=== PATIENT | female | born 1950 | race Caucasian/White ===

== ENCOUNTER 2025-01-09 08:25 | Inpatient (IN) | payer MEDICARE, OTHER ==
[~2025-01-09] VITALS: Ht 157.5 cm; Wt 99.0 kg
[2025-01-09] MEDS ORDERED: Albuterol 2.5 MG/3 ML VIAL INH SCH (08:50)
[2025-01-09 09:18] LABS: Base Excess Venous 9.7 mmol/L; Bicarbonate Venous 31.6 mmol/L (24.0-30.0); PCO2 Venous 55.2 mmHg (38-42)
[2025-01-09] MEDS ORDERED: CefTRIAXone Sodium 1,000 MG in NS 100 ML IV ONE (09:20)
[2025-01-09] MEDS ORDERED: Azithromycin 500 MG in NS 250 ML IV ONE (09:20)
[2025-01-09] MEDS ORDERED: ATOR80 PO (09:37)
[2025-01-09 09:38] LABS: Influenza A, PCR NEGATIVE (NEGATIVE); Influenza B, PCR NEGATIVE (NEGATIVE); SARS-Cov-2 (COVID-19) PCR, MMC NEGATIVE (NEGATIVE)
[2025-01-09] MEDS ORDERED: EZET10 PO (09:38)
[2025-01-09] MEDS ORDERED: FURO20 PO (09:39)
[2025-01-09] MEDS ORDERED: FLUT1DIS8 INH (09:39)
[2025-01-09] MEDS ORDERED: FLUO10 PO (09:39)
[2025-01-09] MEDS ORDERED: HYDHCL25 PO (09:40)
[2025-01-09] MEDS ORDERED: EUTHYROX125 MCG PO (09:40)
[2025-01-09] MEDS ORDERED: MELO7.5 PO (09:40)
[2025-01-09] MEDS ORDERED: ANORO ELLIPTA1 EACH INH (09:40)
[2025-01-09] MEDS ORDERED: OMEP20ER PO (09:41)
[2025-01-09] MEDS ORDERED: OLAN5 PO (09:41)
[2025-01-09] MEDS ORDERED: TRAZ100 PO (09:42)
[2025-01-09] MEDS ORDERED: ALBU90OI INH (09:42)
[2025-01-09] MEDS ORDERED: POTA10T PO (09:42)
[2025-01-09] MEDS ORDERED: ONDA4ODT MM (09:43)
[2025-01-09] MEDS ORDERED: FAMO20 PO (09:43)
[2025-01-09 09:45] LABS: BASOPHILS ABSOLUTE AUTO 0.04 K/mm3 (0.00-0.23); BASOPHILS PERCENT AUTO 1 % (0-2); EOSINOPHILS ABSOLUTE AUTO 0.06 K/mm3 (0.00-0.68); EOSINOPHILS PERCENT AUTO 1 % (0-6); Hematocrit 41.4 % (33.0-51.0); Hemoglobin 13.8 g/dL (11.5-16.0); IMMATURE GRAN ABSOLUTE AUTO 0.06 K/mm3 (0.00-0.10); IMMATURE GRAN PERCENT AUTO 1 % (0-1); LYMPHOCYTES ABSOLUTE AUTO 0.89 K/mm3 (0.84-5.20); LYMPHOCYTES PERCENT AUTO 10 % (21-46); MONOCYTES ABSOLUTE AUTO 0.68 K/mm3 (0.16-1.47); MONOCYTES PERCENT AUTO 8 % (4-13); Mean Corpuscular HGB 30.3 pg (26.0-34.0); Mean Corpuscular HGB Conc 33.3 g/dL (31.5-36.5); Mean Corpuscular Volume 91 fL (80-100); NEUTROPHILS PERCENT AUTO 80 % (41-73); RDW Coefficient Variation 13.6 % (11.7-14.2); RDW Standard Deviation 46.1 fL (35.1-46.3); Red Blood Cell Count 4.55 M/mm3 (3.80-5.20); White Blood Cell Count 8.73 K/mm3 (4.00-11.30)
[2025-01-09 10:05] LABS: Resp Syncytial Virus, PCR POSITIVE (NEGATIVE)
[2025-01-09 10:15] LABS: Platelet Count 173 K/mm3 (150-400)
[2025-01-09 10:16] LABS: Mean Platelet Volume 9.2 fL (9.1-12.4)
[2025-01-09 10:24] LABS: Albumin, Blood 3.5 g/dL (3.4-5.0); Albumin/Globulin Ratio 0.9 (0.8-1.8); Bilirubin, Total 0.9 mg/dL (0.1-1.0); Calcium, Blood 8.9 mg/dL (8.5-10.1); Creatinine, Blood 0.84 mg/dL (0.40-1.00); Globulin, Blood 3.9 g/dL (2.2-4.0); Potassium, Blood 3.7 mmol/L (3.5-5.5); Total Protein, Blood 7.4 g/dL (6.4-8.2)
[2025-01-09 10:48] LABS: Free Thyroxine 0.88 ng/dL (0.70-1.60); Thyroid Stimulating Hormone 18.3 uIU/mL (0.360-4.800)
[2025-01-09] MEDS ORDERED: Famotidine 20 MG Tab PO PRN (13:05)
[2025-01-09] MEDS ORDERED: FLU VACC TS2024-25(6MOS UP)/PF 45 MCG/0.5 ML SYRINGE IM SCH (13:10)
[2025-01-09] MEDS ORDERED: Ondansetron 4 MG SoluTab MM PRN (16:00)
[2025-01-09 16:27] LABS: Source, Urine Foley catheter
[2025-01-09 16:45] LABS: Appearance, Urine Clear (Clear); Bilirubin, Urine Neg (Neg); Blood, Urine 1+ (Neg); Color, Urine Yellow (P-Yellow); Glucose Qualitative, Urine Neg (Neg); Ketones, Urine Neg (Neg); Leukocyte Esterase, Urine Neg (Neg); Nitrite, Urine Neg (Neg); Protein, Urine 3+ (Neg); Specific Gravity, Urine 1.015 (1.003-1.022); Urobilinogen, Urine NORM (Normal)
[2025-01-09 17:26] LABS: Bacteria Few /hpf; Squamous Epithelial Cells Rare /hpf (Few); White Blood Cells, Urine 0-2 /hpf (0-5)
[2025-01-09] MEDS ORDERED: Lactated Ringer's 1,000 ML IV SCH ×2 (19:00→21:10)
[2025-01-09 19:49] LABS: Bun/Creatinine Ratio 11.6 (12.0-20.0); Calcium, Blood 8.8 mg/dL (8.5-10.1); Creatinine, Blood 0.77 mg/dL (0.40-1.00); Magnesium, Blood 2.3 mg/dL (1.6-2.4); Phosphorus, Blood 4.1 mg/dL (2.5-4.9); Potassium, Blood 4.3 mmol/L (3.5-5.5)
[2025-01-09] MEDS ORDERED: HyDROXyzine HCl 25 MG Tab PO SCH (21:00)
[2025-01-09] MEDS ORDERED: OLANZapine 5 MG Tab PO SCH (21:00)
[2025-01-09] MEDS ORDERED: TraZODone HCl 100 MG Tab PO SCH (21:00)
[2025-01-10] VITALS (28 sets, daily range): BP systolic 114–185; BP diastolic 68–141
[2025-01-10] MEDS ORDERED: MethylPREDNISolone Sod Succ 40 MG VIAL IV SCH
[2025-01-10 00:24] LABS: Bun/Creatinine Ratio 13.3 (12.0-20.0); Calcium, Blood 8.3 mg/dL (8.5-10.1); Creatinine, Blood 0.91 mg/dL (0.40-1.00); Potassium, Blood 4.4 mmol/L (3.5-5.5)
[2025-01-10] MEDS ORDERED: Ipratropium/Albuterol SulF 2.5-0.5MG/3 ML Amp INH PRN (01:45)
[2025-01-10] MEDS ORDERED: Omeprazole 20 MG CapCR PO SCH (06:00)
[2025-01-10] MEDS ORDERED: Levothyroxine Sodium 0.15 MG Tab PO SCH (06:00)
[2025-01-10] MEDS ORDERED: Levothyroxine Sodium 0.125 MG Tab PO SCH (06:00)
[2025-01-10 06:46] LABS: BASOPHILS ABSOLUTE AUTO 0.01 K/mm3 (0.00-0.23); BASOPHILS PERCENT AUTO 0 % (0-2); EOSINOPHILS PERCENT AUTO 0 % (0-6); Hematocrit 42.9 % (33.0-51.0); Hemoglobin 13.3 g/dL (11.5-16.0); IMMATURE GRAN ABSOLUTE AUTO 0.07 K/mm3 (0.00-0.10); IMMATURE GRAN PERCENT AUTO 1 % (0-1); LYMPHOCYTES ABSOLUTE AUTO 0.38 K/mm3 (0.84-5.20); LYMPHOCYTES PERCENT AUTO 4 % (21-46); MONOCYTES ABSOLUTE AUTO 0.39 K/mm3 (0.16-1.47); MONOCYTES PERCENT AUTO 4 % (4-13); Mean Corpuscular HGB 29.9 pg (26.0-34.0); Mean Platelet Volume 8.9 fL (9.1-12.4); NEUTROPHILS ABSOLUTE AUTO 8.35 K/mm3 (1.96-9.15); NEUTROPHILS PERCENT AUTO 91 % (41-73); Platelet Count 183 K/mm3 (150-400); RDW Coefficient Variation 13.5 % (11.7-14.2); RDW Standard Deviation 48.4 fL (35.1-46.3); Red Blood Cell Count 4.45 M/mm3 (3.80-5.20)
[2025-01-10 07:13] LABS: Albumin, Blood 3.1 g/dL (3.4-5.0); Albumin/Globulin Ratio 0.7 (0.8-1.8); Bilirubin, Total 0.3 mg/dL (0.1-1.0); Bun/Creatinine Ratio 15.4 (12.0-20.0); Calcium, Blood 8.5 mg/dL (8.5-10.1); Creatinine, Blood 0.91 mg/dL (0.40-1.00); Globulin, Blood 4.3 g/dL (2.2-4.0); Potassium, Blood 4.7 mmol/L (3.5-5.5); Total Protein, Blood 7.4 g/dL (6.4-8.2)
[2025-01-10 08:11] LABS: Mean Corpuscular Volume 96 fL (80-100)
[2025-01-10] MEDS ORDERED: Ezetimibe 10 MG Tab PO SCH (09:00)
[2025-01-10] MEDS ORDERED: Atorvastatin 40 MG Tab PO SCH (09:00)
[2025-01-10] MEDS ORDERED: FLUoxetine HCL 20 MG CAP PO SCH (09:00)
[2025-01-10] MEDS ORDERED: Potassium Chloride 10 Meq Tablet SA PO SCH (09:00)
[2025-01-10] MEDS ORDERED: Enoxaparin 40 MG/0.4 ML SYR SC SCH (09:00)
[2025-01-10] MEDS ORDERED: Lactobacil 2-S.Thermo-Bifido 1 1 Cap PO SCH (09:00)
[2025-01-10] MEDS ORDERED: CefTRIAXone Sodium 1,000 MG in NS 100 ML IV SCH (09:00)
[2025-01-10] MEDS ORDERED: Furosemide 20 MG Tab PO SCH (09:00)
[2025-01-10 10:05] LABS: PO2 Arterial 204 mmHg (80-100)
[2025-01-10 10:06] LABS: PCO2 Arterial > 105 mmHg (35-45); pH Blood Arterial 7.15 (7.35-7.45)
[2025-01-10 11:41] LABS: Base Excess Venous 13.9 mmol/L; Bicarbonate Venous 33.3 mmol/L (24.0-30.0); PCO2 Venous 96.7 mmHg (38-42)
[2025-01-10 11:42] LABS: pH Blood Venous 7.24 (7.34-7.37)
[2025-01-10] MEDS ORDERED: Azithromycin 500 MG in NS 250 ML IV SCH (12:00)
[2025-01-10 15:31] LABS: Base Excess Venous 13.8 mmol/L; Bicarbonate Venous 34.1 mmol/L (24.0-30.0); PCO2 Venous 76.3 mmHg (38-42); pH Blood Venous 7.33 (7.34-7.37)
--- NOTE | 2025-01-10 15:51 | NUR ---
PATIENT BELONGINGS 1 ROBE 1 SHIRT 1 PAIR OF SHOES 1 EYE GLASSES 1 CELL PHONE 1 [place] BAND WRAPPER 1 UPPER DENTURES - IN DENTURE CUP WITH UPHOLSTERER APPRENTICE SOLUTION 2 LOWER DENTURE BRIDGES - IN DENTURE CUP WITH UPHOLSTERER APPRENTICE SOLUTION JEWELRY 1 GOLD NECKLACE WITH PENDANT 1 STRING NECKLACE WITH BRETT PENDANT 1 STRING NECKLACE WITH 2 KEYS 1 SILVER NECKLACE WITH CROSS PENDANT 1 MULTI-COLORED BEADED NECKLACE 1 MULTI-COLORED BEADED BRACELET 6 RINGS TOTAL - 1 RING ABLE TO BE REMOVED ALL NECKLACES, BRACELET, AND 1 RING IN BAG WITH PATIENT LABEL AND PLACED IN PATIENT GARMENT BAG WITH REMAINDER OF BELONGINGS. ITEMS STORED AT BEDSIDE IN ROOM.
--- NOTE | 2025-01-10 18:13 | NUR ---
SHIFT SUMMARY PT ADMITTED TO ICU 01 FROM ED FOR HYPOXIC RESPIRATORY FAILURE REQUIRING BIPAP AND AMS, CO2 >105. REPEAT VBGS SHOW CO2 TRENDING DOWN WITH MOST RECENT AT 1530 RESULTING 76.3. PT ORIGINALLY ONLY ABLE TO OPEN EYES. PT IS NOW ABLE TO MOVE ALL EXTREMITIES, FOLLOW COMMANDS WITH SEVERE WEAKNESS, ORIENTED TO SELF AND COMING TO THE ER BUT REQUIRES REORIENTATION TO SITUATION/DATE/TIME. AFEBRILE. NSR 60S-70S, BPS WITHIN PARAMETERS WITH MILD HYPERTENSION. BIPAP SETTINGS CHARTED, FIO2 35%. PER DR. GILLETTE'S ORDER, IF PH IS >7.3, PT MAY TAKE BREAKS FROM BIPAP. HOWEVER, OXYGEN SATURATION DROPS TO 85% AND PT WILL NOT KEEP SIMPLE MASK ON. PT WAS ABLE TO TOLERATE NASAL CANNULA FOR A SHORT TIME TO EAT PART OF HER DINNER MEAL AND DRINK SOME WATER. LUNGS ARE TIGHT WITH WHEEZING BILATERALLY. UNPRODUCTIVE, CONGESTED COUGH. MARIANO PLACED IN ED FOR RETENTION. SOME REDNESS TO GLUTEAL CLEFT. PIV TO LAC, MIDLINE TO ALEX. CHG BATH PERFORMED ON ARRIVAL TO UNIT.
--- NOTE | 2025-01-10 21:24 | NUR ---
ASSUMPTION OF CARE ASSUMED CARE OF PATIENT AT 1900, BEDSIDE SHIFT REPORT RECEIVED FROM ARON RN. PT RESTING IN BED, ORIENTED TO SELF. PT ABLE TO STATE NAME AND . PT FOLLOWS SOME DIRECTION WHEN PROMPTED SUCH SQUEEZING HANDS AND WIGGLING TOES. PT QUICKLY FALLS ASLEEP MID CONVERSATION. PT LETHARGIC. HR 60-70'S SINUS, MAP >65. PT ON BIPAP 18/7 35%, OXYGEN SATURATION >90%. PT SWITCHED TO 6L NC FOR ORAL CARE AND ATTEMPT TO GIVE MEDICATIONS, OXYGEN SATURATION HIGH 80'S. PT UNABLE TO DRINK WATER WHEN ASKED, NIGHT TIME MEDICATIONS HELD. ABDOMEN SOFT AND ROUND, BOWEL TONES ACTIVE THROUGHOUT. MARIANO IN PLACE PATENT DRAINING DARK YELLOW URINE TO GRAVITY. PIV IN PLACE TO LAC SL. POWERGLIDE IN PLACE TO ALEX SL. BED IN LOWEST POSITON, CALL LIGHT WITHIN REACH, CARE CONNTINUES.
[2025-01-11] VITALS (36 sets, daily range): BP systolic 86–203; BP diastolic 56–107
[2025-01-11 02:09] LABS: Base Excess Venous 14.8 mmol/L; Bicarbonate Venous 34.9 mmol/L (24.0-30.0); PCO2 Venous 79.9 mmHg (38-42); pH Blood Venous 7.32 (7.34-7.37)
[2025-01-11 02:17] LABS: BASOPHILS ABSOLUTE AUTO 0.01 K/mm3 (0.00-0.23); BASOPHILS PERCENT AUTO 0 % (0-2); EOSINOPHILS PERCENT AUTO 0 % (0-6); Hematocrit 40.9 % (33.0-51.0); Hemoglobin 12.8 g/dL (11.5-16.0); IMMATURE GRAN ABSOLUTE AUTO 0.04 K/mm3 (0.00-0.10); IMMATURE GRAN PERCENT AUTO 1 % (0-1); LYMPHOCYTES ABSOLUTE AUTO 0.34 K/mm3 (0.84-5.20); LYMPHOCYTES PERCENT AUTO 4 % (21-46); MONOCYTES ABSOLUTE AUTO 0.42 K/mm3 (0.16-1.47); MONOCYTES PERCENT AUTO 5 % (4-13); Mean Corpuscular HGB 30.5 pg (26.0-34.0); Mean Corpuscular HGB Conc 31.3 g/dL (31.5-36.5); Mean Corpuscular Volume 98 fL (80-100); Mean Platelet Volume 8.9 fL (9.1-12.4); NEUTROPHILS ABSOLUTE AUTO 7.37 K/mm3 (1.96-9.15); NEUTROPHILS PERCENT AUTO 90 % (41-73); Platelet Count 196 K/mm3 (150-400); RDW Coefficient Variation 13.3 % (11.7-14.2); RDW Standard Deviation 47.4 fL (35.1-46.3); Red Blood Cell Count 4.19 M/mm3 (3.80-5.20); White Blood Cell Count 8.18 K/mm3 (4.00-11.30)
[2025-01-11 02:33] LABS: Albumin, Blood 3.1 g/dL (3.4-5.0); Albumin/Globulin Ratio 0.8 (0.8-1.8); Bilirubin, Total 0.4 mg/dL (0.1-1.0); Bun/Creatinine Ratio 20.9 (12.0-20.0); Calcium, Blood 9.1 mg/dL (8.5-10.1); Creatinine, Blood 0.91 mg/dL (0.40-1.00); Globulin, Blood 3.7 g/dL (2.2-4.0); Total Protein, Blood 6.8 g/dL (6.4-8.2)
--- NOTE | 2025-01-11 05:43 | NUR ---
SHIFT SUMMARY NO ACUTE CHANGES THIS SHIFT. PT CONTINUES TO REST IN BED, SLEEPING BUT AROUSABLE. PT MORE AWAKE THIS AM, ORIENTED TO SELF, FOLLOWING SOME COMMANDS SUCH WIGGLING TOES AND SQUEEZING HANDS. PT MOVES EXTREMITIES EQUALLY BILATERALLY. HR 50-70'S SINUS, PT HYPERTENSIVE THIS SHIFT. SBP 140-190'S. PT ON BIPAP FOR THE MAJORITY OF THE SHIFT, 18/7 35%, PT TOLERATED BREAK THIS AM, PLACED ON 6L NC, OXYGEN SATURATION >90%. ABDOMEN SOFT, BOWEL TONES ACTIVE THROUGHOUT. MARIANO IN PLACE PATENT DRAINING YELLOW URINE TO GRAVITY. PIV IN PLACE TO LAC SL. POWERGLIDE IN PLACE TO ALEX INFUSING LR @ 50MLS/HR. BED IN LOWEST POSITION, CALL LIGHT WITHIN REACH, CARE CONTINUES.
[2025-01-11] MEDS ORDERED: HydrALAZINE HCl 20 MG / ML 1ML Vial IV PRN (06:25)
--- NOTE | 2025-01-11 08:57 | NUR ---
Wilkinson of care: Weaned from BiPAP for a short break. She is drowsy & disoriented to everything but self. Placed on 3L. Wheezes throughout. In NSR in 70s but hypertensive - discussed with MD. See emar. Fitch cath in place along with PIV & powerglide. Encouraged to eat breakfast while BiPAP is off. LR infusing at 50 cc/hr. Will continue to monitor.
[2025-01-11] MEDS ORDERED: Lisinopril 20 MG Tab PO SCH (09:00)
[2025-01-11 15:21] LABS: Base Excess Venous 17.9 mmol/L; Bicarbonate Venous 37.5 mmol/L (24.0-30.0); PCO2 Venous 85.9 mmHg (38-42); pH Blood Venous 7.32 (7.34-7.37)
--- NOTE | 2025-01-11 15:54 | NUR ---
Notified Dr. Rasmussen of VBG results. She would like to obtain another at midnight & keep her ICU status until we know which way the VBGs are trending.
--- NOTE | 2025-01-11 17:05 | NUR ---
Shift summary: Spoke with her caseworker protective services, Lori. It sounds like she is at her baseline neurologically. She is oriented to person only. She is intermittently anxious. She does follow commands. She has expressive aphasia. She has been either NSR or sinus arrhythmia today in the 60s for the most part. Blood pressures somewhat labile. See emar for meds administered today. Has remained on BiPAP 18/7, 35% for almost the entire shift, except for 2 short breaks on 3L NC. She has audible wheezes when off the mask. Repeat VBG with CO2 of 85.5, pH 7.3 - will repeat at midnight. She has a congested, moist, unproductive cough. She did not eat any of her meals today due to being quite drowsy & somnolent, though she was alert at my 1600 assessment. She has a wilson cath that is patent & secure draining clear yellow urine. Powerglide & PIV in place. Discussed with MD & updated the patient & her transplant case manager on plan of care.
[2025-01-11] MEDS ORDERED: Insulin Human Lispro 100 Units/ML 3ML Syringe SC PRN (18:00)
--- NOTE | 2025-01-11 22:00 | NUR ---
ASSUME CARE: BEDSIDE REPORT RECIEVED FROM ARON RN. PT A/O TO SELF ONLY. PT FROM [facility], REPORT RECIEVED THAT PT IS ONLY A/O TO SELF AND CONFUSED AT BASELINE. PT ON VENTI MASK AT 5L SPO2>95%. BIPAP PLACED AT 2000 SETTINGS 18/7 AT 35%. PT ABLE TO TOLERATE FOR 1 HR AND PULLED IT OFF, VENTI MASK PLACED FOR BREAK. WILL ATTEMPT TO PUT PT BACK ON BIPAP. VSS. CALL LIGHT IN REACH AND BED IN LOWEST POSITION. WILL REPORT NEEDED.
[2025-01-12] VITALS (17 sets, daily range): BP systolic 135–179; BP diastolic 58–136
[2025-01-12 00:47] LABS: Base Excess Venous 16.7 mmol/L; Bicarbonate Venous 37.3 mmol/L (24.0-30.0); PCO2 Venous 76.8 mmHg (38-42); pH Blood Venous 7.35 (7.34-7.37)
[2025-01-12 03:57] LABS: BASOPHILS PERCENT AUTO 0 % (0-2); EOSINOPHILS PERCENT AUTO 0 % (0-6); Hematocrit 38.9 % (33.0-51.0); Hemoglobin 12.2 g/dL (11.5-16.0); IMMATURE GRAN ABSOLUTE AUTO 0.04 K/mm3 (0.00-0.10); IMMATURE GRAN PERCENT AUTO 1 % (0-1); LYMPHOCYTES ABSOLUTE AUTO 0.55 K/mm3 (0.84-5.20); LYMPHOCYTES PERCENT AUTO 8 % (21-46); MONOCYTES ABSOLUTE AUTO 0.35 K/mm3 (0.16-1.47); MONOCYTES PERCENT AUTO 5 % (4-13); Mean Corpuscular HGB 30.3 pg (26.0-34.0); Mean Corpuscular HGB Conc 31.4 g/dL (31.5-36.5); Mean Corpuscular Volume 97 fL (80-100); Mean Platelet Volume 9.2 fL (9.1-12.4); NEUTROPHILS ABSOLUTE AUTO 5.91 K/mm3 (1.96-9.15); NEUTROPHILS PERCENT AUTO 86 % (41-73); Platelet Count 191 K/mm3 (150-400); RDW Coefficient Variation 13.4 % (11.7-14.2); RDW Standard Deviation 47.9 fL (35.1-46.3); Red Blood Cell Count 4.03 M/mm3 (3.80-5.20); White Blood Cell Count 6.85 K/mm3 (4.00-11.30)
[2025-01-12 04:45] LABS: Albumin, Blood 2.8 g/dL (3.4-5.0); Albumin/Globulin Ratio 0.8 (0.8-1.8); Bilirubin, Total 0.4 mg/dL (0.1-1.0); Bun/Creatinine Ratio 27.2 (12.0-20.0); Calcium, Blood 8.6 mg/dL (8.5-10.1); Creatinine, Blood 1.03 mg/dL (0.40-1.00); Globulin, Blood 3.5 g/dL (2.2-4.0); Potassium, Blood 4.5 mmol/L (3.5-5.5); Total Protein, Blood 6.3 g/dL (6.4-8.2)
--- NOTE | 2025-01-12 06:18 | NUR ---
SHIFT SUMMARY: PT A/O TO SELF ONLY AND ANXIOUS AT TIMES. PT ABLE TO TOLERATE BIPAP FOR MOST OF THE NIGHT AND SLEPT WELL. BIPAP SETTINGS 18/7 AT 35%, SPO2>90%. VSS. NO OTHER ACUTE CHANGES. MARIANO PATENT DRAINING TO GRAVITY. CALL LIGHT IN REACH. WILL REPORT TO ONCOMING RN.
[2025-01-12] MEDS ORDERED: Azithromycin 250 MG Tab PO SCH (12:00)
--- NOTE | 2025-01-12 14:16 | NUR ---
ATTEMPTED TO CONTACT [facility] DONNY RM. LEFT A DETAILED MESSAGE ON SECURE LINE AND REQUESTED CALL BACK TO DISCUSS GOALS OF CARE AND POLST.
--- NOTE | 2025-01-12 14:28 | NUR ---
SPOKE TO GRICELDA MEDEL AT [facility], PATIENT RESIDENCE. GRICELDA STATED PT HAS A POLST ON FILE WHICH STATES PT IS A DNR. REQUESTED COPY OF [employer] DOCUMENTS FOR OUR FILES. GRICELDA STATED SHE WOULD FAX POLST FORM AND [employer] PAPERWORK TO FAX #[phone]. UPDATED DOMINIC MEDEL.
--- NOTE | 2025-01-12 17:56 | NUR ---
SHIFT SUMMARY PT CHANGED TO PCU STATUS. PT UNABLE TO TOLERATE PROLONGED PERIODS ON NC D/T BREATHING THROUGH HER MOUTH. PT PLACED ON BIPAP SEVERAL TIMES THROUGHOUT THE DAY D/T DROWSINESS. NO OTHER ACUTE CHANGES OR EVENTS TODAY. WILL CONTINUE WITH THE PLAN OF CARE.
--- NOTE | 2025-01-12 18:47 | NUR ---
DENTURES NURSE AID NOTICED PT LOWER DENTURES WERE BROKEN INTO TWO PIECES. THIS NURSE CALLED [facility] AND THEY CONFIRMED FAR THEIR KNOWLEDE IT WAS WHOLE IN ONE PIECE WHILE SHE WAS THERE.
--- NOTE | 2025-01-12 20:58 | NUR ---
ASSUME CARE: REPORT RECIEVED FROM DAYSHIFT RN. PT A/O TO SELF ONLY WITH CONFUSION. PT APPEARS TO BE IN A BETTER MOOD TODAY, MORE AGREEABLE TO PUT BIPAP MASK ON FOR SLEEP. BIPAP SETTINGS. 18/ AT 35%, SPO2>95%. VSS. MARIANO PATENT DRAINING TO GRAVITY. WILL UPDATE NEEDED.
[2025-01-12] MEDS ORDERED: Enoxaparin 40 MG/0.4 ML SYR SC SCH (21:00)
[2025-01-13] VITALS (7 sets, daily range): BP systolic 145–168; BP diastolic 83–110
[2025-01-13 03:31] LABS: BASOPHILS PERCENT AUTO 0 % (0-2); EOSINOPHILS PERCENT AUTO 0 % (0-6); Hematocrit 40.4 % (33.0-51.0); Hemoglobin 12.7 g/dL (11.5-16.0); IMMATURE GRAN ABSOLUTE AUTO 0.02 K/mm3 (0.00-0.10); IMMATURE GRAN PERCENT AUTO 0 % (0-1); LYMPHOCYTES ABSOLUTE AUTO 0.61 K/mm3 (0.84-5.20); LYMPHOCYTES PERCENT AUTO 9 % (21-46); MONOCYTES ABSOLUTE AUTO 0.46 K/mm3 (0.16-1.47); MONOCYTES PERCENT AUTO 6 % (4-13); Mean Corpuscular HGB 30.2 pg (26.0-34.0); Mean Corpuscular HGB Conc 31.4 g/dL (31.5-36.5); Mean Corpuscular Volume 96 fL (80-100); NEUTROPHILS ABSOLUTE AUTO 6.09 K/mm3 (1.96-9.15); NEUTROPHILS PERCENT AUTO 85 % (41-73); Platelet Count 205 K/mm3 (150-400); RDW Coefficient Variation 13.2 % (11.7-14.2); RDW Standard Deviation 47.4 fL (35.1-46.3); White Blood Cell Count 7.18 K/mm3 (4.00-11.30)
[2025-01-13 03:35] LABS: Base Excess Venous 19.3 mmol/L; Bicarbonate Venous 39.7 mmol/L (24.0-30.0)
[2025-01-13 05:09] LABS: Albumin, Blood 2.9 g/dL (3.4-5.0); Albumin/Globulin Ratio 0.8 (0.8-1.8); Bilirubin, Total 0.4 mg/dL (0.1-1.0); Bun/Creatinine Ratio 29.9 (12.0-20.0); Calcium, Blood 8.6 mg/dL (8.5-10.1); Creatinine, Blood 0.87 mg/dL (0.40-1.00); Globulin, Blood 3.5 g/dL (2.2-4.0); Potassium, Blood 4.4 mmol/L (3.5-5.5); Total Protein, Blood 6.4 g/dL (6.4-8.2)
--- NOTE | 2025-01-13 06:08 | NUR ---
SHIFT SUMMARY: PT A/O TO SELF, AND CONFUSED AT TIMES. PT ABLE TO TOLERATE BIPAP FOR MOST OF THE NIGHT, SPO2>95% ON BIPAP, VENT SETTINGS 18/7 AT 35%. VSS. PT ABLE TO TAKE SMALL BREAKS FROM THE BIPAP FOR DRINKS OF WATER AND MEDICATED ADMINISTRATION. MONTSERRAT REMOVED THIS AM. CALL LIGHT IN REACH AND BED IN LOWEST POSITION. WILL REPORT TO ONCOMING RN.
--- NOTE | 2025-01-13 12:41 | NUR ---
DENTURES THIS RN SPOKE WITH TRACEY Rosales RN THAT ADMITTED PT TO ICU. TRACEY CONFIRMED THE LOWER DENTURES ARRIVED TO ICU IN CUP IN 2 PIECES FROM THE ER SHE CHARTED IN HER NOTE ON 01/10/25 @ 4999 TITLED PATIENT BELONGINGS. DENISA (DENTAL HYGENTIST) IS TAKING THE DENTURES TO ADVANTAGE DENTAL TO BE REPAIRED.
--- NOTE | 2025-01-13 14:38 | NUR ---
PHONE CALL FROM PATIENTS GUARDIAN. SHE EXPRESSED CONCERNS FOR BROKEN DENTURES. AND INQUIRED IF WE HAD RECIEVED PAPERWORK REQUESTED. WE RECIEVED POLST AND [employer] PAPERWORK FROM [place] THIS SHIFT. GUARDIAN WAS UNAWARE THAT THIS PATIENT HAD A POLST, FAXED COPY TO GUARDIAN. SHE REVIEWED AND EXPRESSED THAT THIS POST DOES NOT APPROPRIATLY REFLECT ELIU' WISHES. VIA PHONE CONVERSATION A NEW POSLT WAS COMPLETED. REVIEWED OPTIONS AND ATTEMPT RESSUCIATION AND FULL TREATMENT WERE SELECTED. PC GIANFRANCO FOSTER WAS PRESENT FOR THIS CONVERSATION. PROVIDER UPDATED VIA PHONE AND ORDERS CHANGED. COPY SENT TO REGISTRY AND SENT TO MEDICAL RECORDS. PC WILL CONTINUE TO PROVIDE SUPPORT.
--- NOTE | 2025-01-13 17:16 | NUR ---
PT MORE AWAKE TODAY. RESPONSIVE AND TALKING TO STAFF THROUGHOUT THE SHIFT. REFUSAL OF CARE AT TIMES. WHEN EATING PLACED ON 5LNC, IN BETWEEN MEALS, PT ON 5L OXYMASK. EATING 100% OF MEALS. VOIDING WITH PUREWICK SYSTEM. NO CONCERNS AT THIS TIME.
[2025-01-14] VITALS (15 sets, daily range): BP systolic 121–202; BP diastolic 58–91
[2025-01-14 03:27] LABS: BASOPHILS ABSOLUTE AUTO 0.01 K/mm3 (0.00-0.23); BASOPHILS PERCENT AUTO 0 % (0-2); EOSINOPHILS PERCENT AUTO 0 % (0-6); Hematocrit 40.8 % (33.0-51.0); IMMATURE GRAN ABSOLUTE AUTO 0.05 K/mm3 (0.00-0.10); IMMATURE GRAN PERCENT AUTO 1 % (0-1); LYMPHOCYTES ABSOLUTE AUTO 0.63 K/mm3 (0.84-5.20); LYMPHOCYTES PERCENT AUTO 9 % (21-46); MONOCYTES ABSOLUTE AUTO 0.39 K/mm3 (0.16-1.47); MONOCYTES PERCENT AUTO 6 % (4-13); Mean Corpuscular HGB Conc 31.9 g/dL (31.5-36.5); Mean Corpuscular Volume 94 fL (80-100); Mean Platelet Volume 8.9 fL (9.1-12.4); NEUTROPHILS ABSOLUTE AUTO 5.98 K/mm3 (1.96-9.15); NEUTROPHILS PERCENT AUTO 85 % (41-73); Platelet Count 204 K/mm3 (150-400); RDW Standard Deviation 44.8 fL (35.1-46.3); Red Blood Cell Count 4.34 M/mm3 (3.80-5.20); White Blood Cell Count 7.06 K/mm3 (4.00-11.30)
[2025-01-14 03:50] LABS: Albumin, Blood 2.9 g/dL (3.4-5.0); Albumin/Globulin Ratio 0.8 (0.8-1.8); Bilirubin, Total 0.4 mg/dL (0.1-1.0); Bun/Creatinine Ratio 43.1 (12.0-20.0); Calcium, Blood 8.8 mg/dL (8.5-10.1); Creatinine, Blood 0.81 mg/dL (0.40-1.00); Globulin, Blood 3.6 g/dL (2.2-4.0); Potassium, Blood 4.3 mmol/L (3.5-5.5); Total Protein, Blood 6.5 g/dL (6.4-8.2)
--- NOTE | 2025-01-14 05:02 | NUR ---
SHIFT SUMMARY: PT A/O TO SELF ONLY, ANXIOUS AND CONFUSED AT TIMES THROUGHOUT THE SHIFT. PT ABLE TO WEAR THE BIPAP FOR MOST OF THE NIGHT AGAIN TONIGHT AND SLEPT WELL. SBP 16Os, MAP>65. HR 50s-60s, BUT DROPS DOWN INTO THE MID 40s AT TIMES. SPO2>95% ON BIPAP, SETTINGS 18/7 AT 35%. PUREWICK IN PLACE. PLAN TO MOVE PT TO U 11. WILL REPORT TO MANUFACTURING ENGINEERING TECHNICIAN.
--- NOTE | 2025-01-14 06:18 | NUR ---
PT ARRIVED FROM ICU AT 0600. PLACED ON TELE, VITALS COMPLETED, PUREWICK REPLACED, SCD'S ON. PT ON BASELINE OXYGEN SETTING OF 3L NC. PT NOW RESTING WITH EVEN CHEST RISE.
[2025-01-14] MEDS ORDERED: NS 250 ML IV PRN (08:35)
[2025-01-14] MEDS ORDERED: Nicotine 7 MG PATCH TOP SCH (09:00)
--- NOTE | 2025-01-14 17:03 | NUR ---
SHIFT NOTE: PT A/OX0 PT KNOWS FIRST NAME AND WHEN LATER PROMPTED COULD GIVE HER LAST NAME. SHE IS UNABLE TO VERBALIZE HER OR ANY OTHER ORIENTATION QUESTIONS. PT BECOMES AGGITATED WHEN UNABLE TO COME UP WITH ANSWERS TO QUESTIONS. SHE IS IN NSR WITH NO ACUTE EVENTS T/O DAY. SHE IS ON 3L OXYMASK DUE TO DESATTING WITH NC. SHE HAS A COUGH AND COARSE LUNG SOUNDS. SHE IS INCONT WITH A PUREWICK SET TO SUCTION. SHE REQUIRES STAFF FOR Q2 REPOSITIONING. BRAND COORDINATOR HAS ASSISTED PT WITH ALL MEALS. DENTURES RETURNED TO PT FROM DENTIST OFFICE. THIS RN UPDATED RN AT [facility] AND GUARDIAN. CARE CONTINUES, CALL LIGHT IN REACH
--- NOTE | 2025-01-14 17:12 | NUR ---
DISCUSSED CASE WITH DR. FONG. PATIENTS GUARDIAN WILL COME IN TOMORROW TO HAVE A CONVERSATION WITH PT PATIENT ABOUT GOALS OF CARE AND REVIEW POLST. PC WILL CONTINUE TO PROVIDE SUPPORT
[2025-01-15 03:35] VITALS: BP 168/78
[2025-01-15 03:56] LABS: BASOPHILS ABSOLUTE AUTO 0.02 K/mm3 (0.00-0.23); BASOPHILS PERCENT AUTO 0 % (0-2); EOSINOPHILS PERCENT AUTO 0 % (0-6); Hematocrit 42.6 % (33.0-51.0); Hemoglobin 13.6 g/dL (11.5-16.0); IMMATURE GRAN ABSOLUTE AUTO 0.13 K/mm3 (0.00-0.10); IMMATURE GRAN PERCENT AUTO 1 % (0-1); LYMPHOCYTES ABSOLUTE AUTO 0.72 K/mm3 (0.84-5.20); LYMPHOCYTES PERCENT AUTO 8 % (21-46); MONOCYTES ABSOLUTE AUTO 0.47 K/mm3 (0.16-1.47); MONOCYTES PERCENT AUTO 5 % (4-13); Mean Corpuscular HGB 30.2 pg (26.0-34.0); Mean Corpuscular HGB Conc 31.9 g/dL (31.5-36.5); Mean Corpuscular Volume 95 fL (80-100); Mean Platelet Volume 9.5 fL (9.1-12.4); NEUTROPHILS ABSOLUTE AUTO 7.82 K/mm3 (1.96-9.15); NEUTROPHILS PERCENT AUTO 85 % (41-73); Platelet Count 214 K/mm3 (150-400); RDW Coefficient Variation 13.2 % (11.7-14.2); RDW Standard Deviation 46.1 fL (35.1-46.3); Red Blood Cell Count 4.51 M/mm3 (3.80-5.20); White Blood Cell Count 9.16 K/mm3 (4.00-11.30)
[2025-01-15 04:13] LABS: Albumin/Globulin Ratio 0.8 (0.8-1.8); Bilirubin, Total 0.4 mg/dL (0.1-1.0); Bun/Creatinine Ratio 46.7 (12.0-20.0); Calcium, Blood 8.8 mg/dL (8.5-10.1); Creatinine, Blood 0.96 mg/dL (0.40-1.00); Globulin, Blood 3.7 g/dL (2.2-4.0); Potassium, Blood 4.2 mmol/L (3.5-5.5); Total Protein, Blood 6.7 g/dL (6.4-8.2)
--- NOTE | 2025-01-15 05:51 | NUR ---
SHIFT SUMMARY PT IS A&O X2, ABLE TO STATE NAME AND , STATES SHE IS [facility] BUT IS UNABLE TO STATE THE YEAR OR TOWN SHE IS IN, OR WHY SHE CAME INTO THE HOSPITAL, ABLE TO MAKE NEEDS KNOWN, OBEYS COMMANDS, BED REST AT THIS TIME, MOVING ALL EXTREMITES WITH PURPOSE/ BLE WEAK, PT CONVERSATION DOES NOT ALWAYS MAKE SENSE. CONTINUOUS SPO2, SPO2 GREATER THAN 90% ON BASELINE 3L O2 VIA OXIMASK, RR ELEVATED INTO THE 20 S, PT HAVING OCCASIONAL COUGH WHEN ASKED TO DEEP BREATH. CONTINUOUS TELE MONITORING, PT SINUS RHYTHM 60-70 S, AT THE START OF SHIFT SBP IN THE 200 S/ GAVE PRN MEDICATIONS PER ORDERS AND BP CAME DOWN TO 140 S, BP STABLE WITH MAP GREATER THAN 65, PT DENIES CHEST P/P T/O THIS SHIFT, PULSES PRESENT T/O. BOWEL TONES PRESENT IN ALL 4Q, PT DENIES PAIN DURING PALPATION. PUREWICK IN PLACE TO LOW CONTINUOUS SUCTION, URINE YELLOW IN COLOR. BED LOWEST POSITION, CALL LIGHT IN REACH, AWAITING TO GIVE REPORT TO ONCOMING RN.
[2025-01-15 08:06] VITALS: BP 150/74
--- NOTE | 2025-01-15 09:30 | NUR ---
ASSUMPTION OF CARE: PATIENT IS ALERT AND ORIENTED X 2 HOWEVER IS USING THE CALL LIGHT APPROPRIATELY, CAN BE AGITATED BUT EASILY TALKED DOWN, HAS HAD A BED BATH, PHYSICAL THERAPY EVAL, 1-2P ASSIST WITH FWW GB, STAND PIVOT TYPES OF TRANSFERS, ONLY MINIMALLY UNSTEADY. PRESSURE REDISTRIBUTION PILLOWS IN PLACE ON THE CHAIR FOR BMAT SCORE AND PROLONGED STAY. PATIENT DENIES CHEST PAIN PRESSURE OR SOB AT REST. WHEN UP TO [facility] SHE VOIDED 1900 OUT OF BLADDER. WITH A MODERATELY SATURATED BRIED AND AM 400 PUREWICK VOID SO FAR TODAY. PATIENT WITH NO KNOWN BOWEL DATE PASSING GAS BOWEL TONES PRESENT, NO BM MEDS AT THIS TIME AWAITING HOSPITALIST ROUNDING. SR AT THIS TIME ONLY USING 3L VIA NC SPO2 >94%. PLAN OF CARE CONTNIUES.
[2025-01-15] MEDS ORDERED: Docusate Sodium/Senna 1 Tab PO SCH (11:20)
[2025-01-15 12:32] VITALS: BP 139/69
--- NOTE | 2025-01-15 15:03 | NUR ---
SPOKE TO GUARDIAN ON THE PHONE. SHE WAS IN EARLIER WITH RN FROM [facility]. THEY DISCUSSED CODE STATUS. AT THIS TIME PATIENT TO REMAIN FULL CODE. UPDATED PROVIDER AND HE WILL SIGN POLST TOMORROW DURING ROUNDS.
--- NOTE | 2025-01-15 18:10 | NUR ---
EOS: PATIENT OVERALL IMPROVED THROUGH THE DAY, STILL BECOMING AGITATED AT TIMES WITH STAFF FOR THIS RN WAS EASILY REDIRECTABLE, HOWEVER, OTHER STAFF SHE WOULD REFUSE CARE. PATIENT HAS BEEN 3-4L MOSTLY 3 IF OXYMASK, 4 WITH NC AND AWAKE. PATIENT DENIES CHEST PAIN PRESSURE OR SOB. SPO2 >90-92% ON ABOVE OXYGENATION. PATIENT TOLERATED EATING MEALS IN CHAIR. AND BLADDER TRAINING (UP TO BSC) PROIVDED WITH REPOSITIONS AND MEALS, WAS UNABLE TO VOID, NO SENSATION TO VOID, AND NEEDED STRAIGHT CATHETERIZATION 600mL OBTAINED. PATIETN EDUCATED ON NEED. PATIENT ALSO EDUCATED ON FURTHER POTENTIAL NEED. PATIENT HAS BEEN REPOSITIONED Q2 OR MORE FREQUENT. PATIENT L AC REMOVED DUE TO LEAKING. PATIENT WITH BOWEL MEDS STARTED. ACTIVE BOWEL TONES THROUGHTOUT AND PASSING GAS. NO FURTHER ACUTE CONCERNS.
[2025-01-15 20:25] VITALS: BP 186/65
[2025-01-15 21:10] VITALS: BP 141/51
[2025-01-15] MEDS ORDERED: BISA10S PR (22:29)
[2025-01-15] MEDS ORDERED: DULCOLAX400 MG/5 M PO (22:38)
[2025-01-15] MEDS ORDERED: Milk Thistle175 M1 PO (22:39)
[2025-01-15] MEDS ORDERED: MIRALAX17 GM PO (22:44)
[2025-01-15] MEDS ORDERED: SENNA LAXATIVE8.6 MG PO (22:46)
[2025-01-15] MEDS ORDERED: VITAMIN D325 MC3 PO (22:48)
[2025-01-15] MEDS ORDERED: CALCIUM 600 MG1 EA18 PO (22:52)
[2025-01-15 23:40] VITALS: BP 101/73
[2025-01-16] VITALS (7 sets, daily range): BP systolic 122–170; BP diastolic 44–93
--- NOTE | 2025-01-16 05:25 | NUR ---
SHIFT SUMMARY PT IS A&O X2, ABLE TO STATE NAME AND , STATES SHE [place] [facility] BUT IS UNABLE TO STATE THE YEAR OR TOWN SHE IS IN, OR WHY SHE CAME INTO THE HOSPITAL, ABLE TO MAKE NEEDS KNOWN, OBEYS COMMANDS, MOVING ALL EXTREMITES WITH PURPOSE/ BLE WEAK, AMBULATED 1P ASSIST WITH FWW, PT DID BECOME AGGITATED A COUPLE TIMES THIS SHIFT WHEN SHE FELT OVERLY HEATED AND WANTED THE BLANKETS OFF. CONTINUOUS SPO2, SPO2 GREATER THAN 90% ON BASELINE 3L O2 VIA OXIMASK, RR ELEVATED INTO THE 20 S, PT HAVING OCCASIONAL COUGH. CONTINUOUS TELE MONITORING, PT SINUS RHYTHM 60-70 S, AT THE START OF SHIFT SBP IN THE 180 S/ GAVE PRN MEDICATIONS PER ORDERS, BP STABLE WITH MAP GREATER THAN 65, MURMUR PRESENT/MD MADE AWARE, PT DENIES CHEST P/P T/O THIS SHIFT, PULSES PRESENT T/O. BOWEL TONES PRESENT IN ALL 4Q. PT VOIDING IND TO BSC, URINE PALE YELLOW. BED LOWEST POSITION, CALL LIGHT IN REACH, AWAITING TO GIVE REPORT TO ONCOMING RN.
--- NOTE | 2025-01-16 16:13 | NUR ---
SHIFT SUMMARY PT UP TO CHAIR AND BATHROOM WITH 1 ASSIST DURING SHIFT. USES OXYMASK AT 1-2L DURING SHIFT. WILL DESAT WITH NASAL CANULA OR WHILE EATING. BREATHS THROUGH HER MOUTH WHILE SLEEPING. AA0X1/2 GETS QUICKLY FRUSTRATED WITH STAFF AND HAS SOME DIFFICULTY MAKING HER NEEDS KNOWN. TOLERATING DIET WELL. VERY SOMNOLENT THIS MORNING BUT HAS WOKEN UP THROUGHOUT THE SHIFT.
--- NOTE | 2025-01-16 22:00 | NUR ---
TRANSFER OF CARE @ [facility] REPORT GIVEN TO MEDICAL FLOOR RN @ [facility] 6715 BY THIS RN. PT TRANSFERED IN BED BY MEDICAL STAFF WITH ALL BELONGINGS @ 2209
--- NOTE | 2025-01-16 22:55 | NUR ---
PT TRANSFERRED FROM PCU AND IS COMFORTABLE IN BED. ASSUMED CARE OF PT AND PT IS CURRENTLY WATCHING TV AND NO NEED FOR MEDICATION AT THIS TIME
--- NOTE | 2025-01-17 03:08 | NUR ---
SHIFT SUMM: PT IS A 74 YO FULL CODE WHO WAS A TRANSFER FROM PCU THIS SHIFT. PT WAS ADMITTED FOR RESP FAILURE AND DROPLET PREC FOR RSV. PT HAS BEEN RELAXING MOST OF THE SHIFT AND SLEEPING WITH NO COMPLAINTS. PT IS INCONT BUT WILL USE A FWW TO THE BSC WITH 1 ASSIST. PT IS ON 3L OF OX AND 3L AT BASELINE. PT HAS A ALEX PG. PALLATIVE CARE IS INVOLVED IN PT'S CARE. PT HAS A STATE [employer]IAN[employer]IP. PT LIVES AT [facility] AND HAS DEMENTIA AND A&OX2. PT HAS CALL LIGHT IN REACH AND BED ALARM SET FOR SAFETY.
[2025-01-17 05:33] VITALS: BP 156/69
[2025-01-17 07:15] VITALS: BP 141/58
[2025-01-17] MEDS ORDERED: PredniSONE 20 MG Tab PO SCH (09:00)
[2025-01-17 11:40] LABS: BASOPHILS ABSOLUTE AUTO 0.03 K/mm3 (0.00-0.23); BASOPHILS PERCENT AUTO 0 % (0-2); EOSINOPHILS ABSOLUTE AUTO 0.01 K/mm3 (0.00-0.68); EOSINOPHILS PERCENT AUTO 0 % (0-6); Hematocrit 39.8 % (33.0-51.0); Hemoglobin 12.6 g/dL (11.5-16.0); IMMATURE GRAN ABSOLUTE AUTO 0.19 K/mm3 (0.00-0.10); IMMATURE GRAN PERCENT AUTO 2 % (0-1); LYMPHOCYTES ABSOLUTE AUTO 1.02 K/mm3 (0.84-5.20); LYMPHOCYTES PERCENT AUTO 10 % (21-46); MONOCYTES ABSOLUTE AUTO 0.94 K/mm3 (0.16-1.47); MONOCYTES PERCENT AUTO 9 % (4-13); Mean Corpuscular HGB 30.1 pg (26.0-34.0); Mean Corpuscular HGB Conc 31.7 g/dL (31.5-36.5); Mean Corpuscular Volume 95 fL (80-100); Mean Platelet Volume 9.4 fL (9.1-12.4); NEUTROPHILS ABSOLUTE AUTO 7.98 K/mm3 (1.96-9.15); NEUTROPHILS PERCENT AUTO 79 % (41-73); Platelet Count 207 K/mm3 (150-400); RDW Coefficient Variation 13.2 % (11.7-14.2); RDW Standard Deviation 45.9 fL (35.1-46.3); Red Blood Cell Count 4.19 M/mm3 (3.80-5.20); White Blood Cell Count 10.17 K/mm3 (4.00-11.30)
[2025-01-17 11:45] VITALS: BP 153/55
[2025-01-17 12:03] LABS: Albumin, Blood 2.8 g/dL (3.4-5.0); Albumin/Globulin Ratio 0.9 (0.8-1.8); Bilirubin, Total 0.4 mg/dL (0.1-1.0); Calcium, Blood 8.6 mg/dL (8.5-10.1); Creatinine, Blood 1.09 mg/dL (0.40-1.00); Potassium, Blood 4.4 mmol/L (3.5-5.5); Total Protein, Blood 5.8 g/dL (6.4-8.2)
[2025-01-17 15:49] VITALS: BP 104/62
--- NOTE | 2025-01-17 18:42 | NUR ---
SHIFT SUMMARY PT A&OX2. PT ORIENTED TO SELF AND PLACE, NOT SITUATION OR DATE. PT ADMITTED DUE TO RESPIRATORY FAILURE WITH HYPOXIA. PT IN DROPLET FOR RSV. PT IS SBA W FWW TO TOILET. PT HAD BM. PT CONT OF URINE AND BM. ENCOUAGED PT TO BE UP IN CHAIR. PT ON 3L O2 VIA N/C. PT USES OXI MASK AT TIMES DUE TO MOUTH BREATHING. NICOTINE PATCH ON R SHOULDER. PT REPORTED NO COMPLAINT OF CHEST PAIN OR SOB. THROUGH SHIFT, PT RESTING WITH EYES CLOSED, W UNLABORED BREATHING. BED IN LOWEST POSITION. CALL LIGHT IN REACH, MAKES NEEDS KNOWN.
[2025-01-17 19:40] VITALS: BP 110/53
[2025-01-18 02:52] VITALS: BP 141/68
--- NOTE | 2025-01-18 06:33 | NUR ---
SHIFT SUMMARY PT A&O TO SELF AND PLACE. PT IS CONFUSED AND CAN GET AGITATED IF PT CARE IS NOT EXPLAINED. PT RECEIVED SCHEDULED AND PRN MEDICATIONS. PT CHANGED PRN. PT VSS, NO COMPLAINTS OF CP/PRESSURE OR SOB. PT SPENT MOST OF SHIFT IN BED WITH EYES CLOSED AND RESPPIRATIONS EVEN AND UNLABORED. PT O2 INCREASED TO 5L TO MAINTAIN O2 OVER 90%. NO ACUTE EVENTS AT THIS TIME. PT REPOSITIONED Q2HRS. FALL PRECAUTIONS IN PLACE AND CALL LIGHT IN REACH.
[2025-01-18 07:52] VITALS: BP 140/59
[2025-01-18] MEDS ORDERED: PredniSONE 20 MG Tab PO SCH (09:00)
[2025-01-18 09:23] LABS: BASOPHILS ABSOLUTE AUTO 0.03 K/mm3 (0.00-0.23); BASOPHILS PERCENT AUTO 0 % (0-2); EOSINOPHILS ABSOLUTE AUTO 0.04 K/mm3 (0.00-0.68); EOSINOPHILS PERCENT AUTO 1 % (0-6); Hematocrit 41.6 % (33.0-51.0); Hemoglobin 13.1 g/dL (11.5-16.0); IMMATURE GRAN ABSOLUTE AUTO 0.28 K/mm3 (0.00-0.10); IMMATURE GRAN PERCENT AUTO 3 % (0-1); LYMPHOCYTES ABSOLUTE AUTO 1.29 K/mm3 (0.84-5.20); LYMPHOCYTES PERCENT AUTO 15 % (21-46); MONOCYTES ABSOLUTE AUTO 0.78 K/mm3 (0.16-1.47); MONOCYTES PERCENT AUTO 9 % (4-13); Mean Corpuscular HGB Conc 31.5 g/dL (31.5-36.5); Mean Corpuscular Volume 95 fL (80-100); Mean Platelet Volume 9.5 fL (9.1-12.4); NEUTROPHILS ABSOLUTE AUTO 6.23 K/mm3 (1.96-9.15); NEUTROPHILS PERCENT AUTO 72 % (41-73); Platelet Count 198 K/mm3 (150-400); RDW Coefficient Variation 13.1 % (11.7-14.2); RDW Standard Deviation 46.3 fL (35.1-46.3); Red Blood Cell Count 4.37 M/mm3 (3.80-5.20); White Blood Cell Count 8.65 K/mm3 (4.00-11.30)
[2025-01-18 09:42] LABS: Albumin, Blood 2.7 g/dL (3.4-5.0); Albumin/Globulin Ratio 0.8 (0.8-1.8); Bilirubin, Total 0.5 mg/dL (0.1-1.0); Bun/Creatinine Ratio 39.6 (12.0-20.0); Calcium, Blood 8.8 mg/dL (8.5-10.1); Creatinine, Blood 0.99 mg/dL (0.40-1.00); Globulin, Blood 3.2 g/dL (2.2-4.0); Potassium, Blood 4.6 mmol/L (3.5-5.5); Total Protein, Blood 5.9 g/dL (6.4-8.2)
[2025-01-18 16:02] VITALS: BP 138/50
--- NOTE | 2025-01-18 16:03 | NUR ---
PT HAS BEEN AOX2-3 AND VERY TIRED. PT IS A ONE PERSON ASSIST TO CHAIR OR BED. PT GETS WORRIED WHAT PEOPLE ARE DOING WHEN WORKING WITH HER OR GIVING MEDS. PT THOUGHT HER AID WAS GOING TO TAKE HER THINGS. PT IS CURRENTLY RESTING IN BED. CALL LIGHT IN REACH. PT'S NOSE DOES PLUG WHEN SLEEPING AND MOUTH BREATH O2 MASK USED TO MAINTAIN O2 SATS. CALL LIGHT IN REACH WILL CONTINUE TO MONITOR.
[2025-01-18 19:24] VITALS: BP 84/55
[2025-01-18 20:11] VITALS: BP 139/65
[2025-01-19 00:12] VITALS: BP 134/56
--- NOTE | 2025-01-19 03:32 | NUR ---
CONFIGURATION MANAGEMENT ARCHITECT SUMMARY: PT A&O TO PERSON AND PLAC. NOTED TO GET AGITATED WITH CARE AND MAKING HER NEEDS KNOWN. PT SPENT MOST OF NIGHT IN BED AND UP TO CHAIR X1. NO ACUTE EVENTS. CALL LIGHT IN REACH. BED ALARM IN PLACE. TURN Q2H SCHEDULE. 1 PERSON SBA WITH TRANSFERS. BED IN LOWEST POSITION. CARES ONGOING ORDERED.
[2025-01-19 04:22] VITALS: BP 117/49
[2025-01-19 08:54] VITALS: BP 142/56
[2025-01-19] MEDS ORDERED: LISI20 PO (15:16)
[2025-01-19] MEDS ORDERED: PRED20 PO (15:19)
[2025-01-19] MEDS ORDERED: VISBIOME 112.51 EACH PO (15:19)
--- NOTE | 2025-01-19 15:57 | NUR ---
REVIEWED CASE WITH PROVIDER, POLST WILL NEED TO BE UPDATED WITH PRIMARY CARE PROVIDER AT FOLLOW UP APT. ROUNDED ON PATIENT. SISTER AT BEDSIDE.
--- NOTE | 2025-01-19 18:21 | NUR ---
DISCHARGE SUMMARY PATIENT WITH NO ACUTE EVENTS DURING SHIFT. SHE IS UP TO BATHROOM WITH ASSISTANCE AND GENERALLY WAITS AT EDGE OF BED WITH BED ALARM ON FOR CARESTAFF TO STANDBY ASSIST. HER WITH WALKER TO BATHROOM. PATIENT TRANSFERRED TO [facility] TRANSPORT AT 1600. RN REPORT GIVEN TO KAM AT [facility].
== END 2025-01-19 16:13 | disposition home health service (06) | DRG 189 ==
LOC: ER 08:25 → ICUE 13:01 → PCU 13:01 → ERHOLD 13:01 → ICUE 01-10 11:21 → MEDS 01-10 12:15 → ICUE 01-10 19:25 → PCU 01-14 05:57 → MEDS 01-16 22:15
PROVIDERS: Emergency Medicine; Family Medicine; Internal Medicine; ADMIT Hospitalist
PROC: 0T9B70Z Drainage of Bladder with Drainage Device, Via Natural or Artificial Opening (ICD-10-PCS; principal; 2025-01-10)
PROC: 5A09457 Assistance with Respiratory Ventilation, 24-96 Consecutive Hours, Continuous Positive Airway Pressure (ICD-10-PCS; 2025-01-10)
DX: J96.21 Acute and chronic respiratory failure with hypoxia (principal); I50.32 Chronic diastolic (congestive) heart failure; F01.53 Vascular dementia, unspecified severity, with mood disturbance; F01.54 Vascular dementia, unspecified severity, with anxiety; J44.1 Chronic obstructive pulmonary disease with (acute) exacerbation; J96.22 Acute and chronic respiratory failure with hypercapnia; I11.0 Hypertensive heart disease with heart failure; E78.5 Hyperlipidemia, unspecified; E03.9 Hypothyroidism, unspecified; F25.9 Schizoaffective disorder, unspecified; F17.210 Nicotine dependence, cigarettes, uncomplicated; K21.9 Gastro-esophageal reflux disease without esophagitis; M81.0 Age-related osteoporosis without current pathological fracture; N32.0 Bladder-neck obstruction; E66.9 Obesity, unspecified; R33.8 Other retention of urine; Z88.0 Allergy status to penicillin; Z88.8 Allergy status to other drugs, medicaments and biological substances; Z91.040 Latex allergy status; Z91.048 Other nonmedicinal substance allergy status; Z88.2 Allergy status to sulfonamides; Z88.1 Allergy status to other antibiotic agents; Z79.890 Hormone replacement therapy; Z79.899 Other long term (current) drug therapy; Z79.51 Long term (current) use of inhaled steroids; Z85.41 Personal history of malignant neoplasm of cervix uteri; Z86.73 Personal history of transient ischemic attack (TIA), and cerebral infarction without residual deficits; Z87.19 Personal history of other diseases of the digestive system; Z68.36 Body mass index [BMI] 36.0-36.9, adult
CPT/HCPCS: 0241U; 36415; 36600; 51701; 51702; 51798; 71045; 76770; 80048; 80053; 81001; 82803; 82947; 83605; 83735; 83880; 84100; 84439; 84443; 85025; 87040; 93005; 93010; 93306; 94640; 94644; 94660; 94664; 94760; 94761; 94762; 96365-59; 96367-59; 97110; 97161; 97530; 99285-25; A9270; C1751; J0360; J0456; J0696; J1650; J2919; J7050; J7120; J7512

== ENCOUNTER 2025-01-21 15:58 | Emergency (ER) | payer MEDICARE, OTHER ==
[~2025-01-21] VITALS: Ht 162.6 cm; Wt 113.4 kg
[~2025-01-21 15:58] MED LIST: ALBU90OI INH; ANORO ELLIPTA1 EACH INH; ATOR80 PO; BISA10S PR; CALCIUM 600 MG1 EA18 PO; DULCOLAX400 MG/5 M PO; EUTHYROX125 MCG PO; EZET10 PO; FAMO20 PO; FLUO10 PO; FLUT1DIS8 INH; FURO20 PO; HYDHCL25 PO; LISI20 PO; MELO7.5 PO; MIRALAX17 GM PO; Milk Thistle175 M1 PO; OLAN5 PO; OMEP20ER PO; ONDA4ODT MM; POTA10T PO; PRED20 PO; SENNA LAXATIVE8.6 MG PO; TRAZ100 PO; VISBIOME 112.51 EACH PO; VITAMIN D325 MC3 PO
[2025-01-21 17:25] LABS: BASOPHILS ABSOLUTE AUTO 0.01 K/mm3 (0.00-0.23); BASOPHILS PERCENT AUTO 0 % (0-2); EOSINOPHILS ABSOLUTE AUTO 0.13 K/mm3 (0.00-0.68); EOSINOPHILS PERCENT AUTO 1 % (0-6); Hematocrit 40.4 % (33.0-51.0); IMMATURE GRAN PERCENT AUTO 1 % (0-1); LYMPHOCYTES ABSOLUTE AUTO 1.84 K/mm3 (0.84-5.20); LYMPHOCYTES PERCENT AUTO 16 % (21-46); MONOCYTES ABSOLUTE AUTO 1.03 K/mm3 (0.16-1.47); MONOCYTES PERCENT AUTO 9 % (4-13); Mean Corpuscular HGB Conc 32.2 g/dL (31.5-36.5); Mean Corpuscular Volume 93 fL (80-100); Mean Platelet Volume 10.3 fL (9.1-12.4); NEUTROPHILS ABSOLUTE AUTO 8.13 K/mm3 (1.96-9.15); NEUTROPHILS PERCENT AUTO 72 % (41-73); Platelet Count 190 K/mm3 (150-400); RDW Coefficient Variation 13.2 % (11.7-14.2); RDW Standard Deviation 44.9 fL (35.1-46.3); Red Blood Cell Count 4.33 M/mm3 (3.80-5.20); White Blood Cell Count 11.24 K/mm3 (4.00-11.30)
[2025-01-21 17:46] LABS: Albumin, Blood 3.2 g/dL (3.4-5.0); Bilirubin, Total 0.9 mg/dL (0.1-1.0); Bun/Creatinine Ratio 21.2 (12.0-20.0); Calcium, Blood 8.6 mg/dL (8.5-10.1); Creatinine, Blood 1.04 mg/dL (0.40-1.00); Globulin, Blood 3.1 g/dL (2.2-4.0); Potassium, Blood 4.3 mmol/L (3.5-5.5); Total Protein, Blood 6.3 g/dL (6.4-8.2)
== END 2025-01-21 19:00 | disposition home or self-care (01) ==
LOC: ER 15:58
PROVIDERS: Physician Assistant
DX: M79.89 Other specified soft tissue disorders (principal); F17.200 Nicotine dependence, unspecified, uncomplicated; Z79.899 Other long term (current) drug therapy; Z79.52 Long term (current) use of systemic steroids; Z79.51 Long term (current) use of inhaled steroids; Z88.0 Allergy status to penicillin; Z88.6 Allergy status to analgesic agent; Z88.5 Allergy status to narcotic agent; Z91.040 Latex allergy status; Z88.1 Allergy status to other antibiotic agents; Z91.048 Other nonmedicinal substance allergy status; Z88.8 Allergy status to other drugs, medicaments and biological substances
CPT/HCPCS: 80053; 85025; 93971; 99284-25

== ENCOUNTER → 2025-05-25 | Outpatient (CLI) | payer MEDICARE, OTHER ==
[2025-05-25 17:20] LABS: Source, Urine Clean Catch
[2025-05-25 19:01] LABS: Bilirubin, Urine Neg (Neg); Color, Urine Yellow (P-Yellow); Glucose Qualitative, Urine Neg (Neg); Ketones, Urine Neg (Neg); Leukocyte Esterase, Urine 1+ (Neg); Protein, Urine 2+ (Neg); Specific Gravity, Urine 1.005 (1.003-1.022); Urobilinogen, Urine NORM (Normal)
[2025-05-25 19:15] LABS: Red Blood Cells, Urine 0-2 /hpf (0-2)
== END ==
LOC: LAB SHORT 17:18 → LAB 17:18
PROVIDERS: Physician Assistant
DX: N39.0 Urinary tract infection, site not specified (principal)
CPT/HCPCS: 81001; 87077; 87086; 87186

== ENCOUNTER 2025-06-21 16:56 | Emergency (ER) | payer MEDICARE, OTHER ==
[~2025-06-21] VITALS: Ht 152.4 cm; Wt 81.7 kg
[2025-06-21] MEDS ORDERED: Ipratropium/Albuterol SulF 2.5-0.5MG/3 ML Amp INH ONE (17:05)
[2025-06-21] MEDS ORDERED: Albuterol 2.5 MG/3 ML VIAL INH SCH (17:05)
[2025-06-21 17:07] LABS: pH Blood Venous 7.48 (7.34-7.37)
[2025-06-21 17:36] LABS: BASOPHILS ABSOLUTE AUTO 0.04 K/mm3 (0.00-0.23); BASOPHILS PERCENT AUTO 0 % (0-2); EOSINOPHILS ABSOLUTE AUTO 0.39 K/mm3 (0.00-0.68); EOSINOPHILS PERCENT AUTO 4 % (0-6); Hematocrit 37.8 % (33.0-51.0); Hemoglobin 12.5 g/dL (11.5-16.0); IMMATURE GRAN ABSOLUTE AUTO 0.03 K/mm3 (0.00-0.10); IMMATURE GRAN PERCENT AUTO 0 % (0-1); LYMPHOCYTES ABSOLUTE AUTO 2.18 K/mm3 (0.84-5.20); LYMPHOCYTES PERCENT AUTO 21 % (21-46); MONOCYTES ABSOLUTE AUTO 0.88 K/mm3 (0.16-1.47); MONOCYTES PERCENT AUTO 8 % (4-13); Mean Corpuscular HGB Conc 33.1 g/dL (31.5-36.5); Mean Corpuscular Volume 93 fL (80-100); NEUTROPHILS ABSOLUTE AUTO 6.98 K/mm3 (1.96-9.15); NEUTROPHILS PERCENT AUTO 66 % (41-73); NRBC ABSOLUTE 0.00 K/mm3 (0.00-0.02); NRBC Auto 0.0 /100 WBC (0.0-0.2); Platelet Count 195 K/mm3 (150-400); RDW Coefficient Variation 13.0 % (11.7-14.2); RDW Standard Deviation 44.7 fL (35.1-46.3)
[2025-06-21] MEDS ORDERED: Furosemide 10 MG / ML 2ML Vial IV ONE (17:55)
[2025-06-21 17:57] LABS: Alanine Aminotransfer (ALT/SGP 62.0 U/L (12-78); Albumin, Blood 3.4 g/dL (3.4-5.0); Albumin/Globulin Ratio 1.0 (0.8-1.8); Anion Gap 8.0 mmol/L (3-11); Aspartate Aminotrans (AST/SGOT 76.0 U/L (12-37); Bilirubin, Total 0.8 mg/dL (0.1-1.0); Blood Urea Nitrogen 13.0 mg/dL (8-24); CO2, Blood 32.0 mmol/L (21-32); Calcium, Blood 8.5 mg/dL (8.5-10.1); Chloride, Blood 91.0 mmol/L (98-108); Creatinine, Blood 0.78 mg/dL (0.40-1.00); Globulin, Blood 3.4 g/dL (2.2-4.0); Glucose, Blood 118.0 mg/dL (70-99); Magnesium, Blood 2.0 mg/dL (1.6-2.4); Potassium, Blood 3.8 mmol/L (3.5-5.5); Sodium, Blood 127.0 mmol/L (136-145); Total Protein, Blood 6.8 g/dL (6.4-8.2)
[2025-06-21] MEDS ORDERED: PRED20 PO (20:36)
[2025-06-21] MEDS ORDERED: AZIT250 PO (20:36)
== END 2025-06-21 21:30 | disposition home or self-care (01) ==
LOC: ER 16:56
PROVIDERS: Student in an Organized Health Care Education/Training Program
DX: J44.1 Chronic obstructive pulmonary disease with (acute) exacerbation (principal); I11.0 Hypertensive heart disease with heart failure; I50.30 Unspecified diastolic (congestive) heart failure; J96.21 Acute and chronic respiratory failure with hypoxia; R06.03 Acute respiratory distress; E78.5 Hyperlipidemia, unspecified; E03.9 Hypothyroidism, unspecified; F25.9 Schizoaffective disorder, unspecified; F17.200 Nicotine dependence, unspecified, uncomplicated; Z88.0 Allergy status to penicillin; Z88.5 Allergy status to narcotic agent; Z88.2 Allergy status to sulfonamides; Z88.1 Allergy status to other antibiotic agents; Z88.8 Allergy status to other drugs, medicaments and biological substances; Z91.040 Latex allergy status; Z91.048 Other nonmedicinal substance allergy status; Z79.899 Other long term (current) drug therapy; Z79.890 Hormone replacement therapy; Z99.81 Dependence on supplemental oxygen
CPT/HCPCS: 71045; 80053; 82330; 82803; 83735; 83880; 85025; 94644; 94664; J0456; J0612; J1938; J2919; J7050

== ENCOUNTER 2025-06-23 17:03 | Emergency (ER) | payer MEDICARE, OTHER ==
[~2025-06-23] VITALS: Ht 157.5 cm; Wt 90.7 kg
[~2025-06-23 17:03] MED LIST changes: +AZIT250 PO
== END 2025-06-23 18:46 | disposition home or self-care (01) ==
LOC: ER 17:03
DX: I11.0 Hypertensive heart disease with heart failure (principal); I50.9 Heart failure, unspecified; E78.5 Hyperlipidemia, unspecified; F17.200 Nicotine dependence, unspecified, uncomplicated; Z79.2 Long term (current) use of antibiotics; Z79.899 Other long term (current) drug therapy; Z88.0 Allergy status to penicillin; Z88.8 Allergy status to other drugs, medicaments and biological substances; Z91.040 Latex allergy status; Z91.041 Radiographic dye allergy status; Z88.1 Allergy status to other antibiotic agents
CPT/HCPCS: 93005; 93010; 99283-25

== ENCOUNTER 2025-11-02 16:00 | Inpatient (IN) | payer MEDICARE, OTHER ==
[2025-11-02 16:28] LABS: BASOPHILS ABSOLUTE AUTO 0.04 K/mm3 (0.00-0.23); BASOPHILS PERCENT AUTO 1 % (0-2); EOSINOPHILS ABSOLUTE AUTO 0.26 K/mm3 (0.00-0.68); EOSINOPHILS PERCENT AUTO 3 % (0-6); Hematocrit 40.9 % (33.0-51.0); Hemoglobin 12.7 g/dL (11.5-16.0); IMMATURE GRAN ABSOLUTE AUTO 0.01 K/mm3 (0.00-0.10); IMMATURE GRAN PERCENT AUTO 0 % (0-1); LYMPHOCYTES ABSOLUTE AUTO 1.33 K/mm3 (0.84-5.20); LYMPHOCYTES PERCENT AUTO 17 % (21-46); MONOCYTES ABSOLUTE AUTO 0.73 K/mm3 (0.16-1.47); MONOCYTES PERCENT AUTO 9 % (4-13); Mean Corpuscular HGB Conc 31.1 g/dL (31.5-36.5); Mean Corpuscular Volume 96 fL (80-100); NEUTROPHILS ABSOLUTE AUTO 5.60 K/mm3 (1.96-9.15); NEUTROPHILS PERCENT AUTO 70 % (41-73); NRBC ABSOLUTE 0.00 K/mm3 (0.00-0.02); NRBC Auto 0.0 /100 WBC (0.0-0.2); Platelet Count 208 K/mm3 (150-400); RDW Coefficient Variation 13.9 % (11.7-14.2); RDW Standard Deviation 48.8 fL (35.1-46.3)
[2025-11-02 17:02] LABS: Alanine Aminotransfer (ALT/SGP 25.0 U/L (12-78); Albumin, Blood 3.4 g/dL (3.4-5.0); Albumin/Globulin Ratio 1.0 (0.8-1.8); Anion Gap 6.0 mmol/L (3-11); Aspartate Aminotrans (AST/SGOT 24.0 U/L (12-37); Bilirubin, Total 0.5 mg/dL (0.1-1.0); Blood Urea Nitrogen 11.0 mg/dL (8-24); CO2, Blood 39.0 mmol/L (21-32); Calcium, Blood 9.1 mg/dL (8.5-10.1); Chloride, Blood 98.0 mmol/L (98-108); Creatinine, Blood 1.06 mg/dL (0.40-1.00); Globulin, Blood 3.5 g/dL (2.2-4.0); Glucose, Blood 95.0 mg/dL (70-99); Potassium, Blood 3.8 mmol/L (3.5-5.5); Sodium, Blood 139.0 mmol/L (136-145); Total Protein, Blood 6.9 g/dL (6.4-8.2)
[2025-11-02] MEDS ORDERED: Heparin Sodium 5000 Units/ML 1ML MDV IV ONE (19:00)
[2025-11-02 19:37] LABS: Anti-Xa UFH, PHA Monitoring <0.10 IU/mL; Prothrombin Time Results 11.3 Sec (9.7-11.5)
[2025-11-02] MEDS ORDERED: Heparin Sodium,Porcine/0.5 NS 500 ML IV SCH (19:40)
[2025-11-02] MEDS ORDERED: Dose Adjust by Pharmacy XX STA (19:49)
[2025-11-02] MEDS ORDERED: FLU VACC TS2025(65UP)/MF59C/PF 45 MCG/0.5 ML SYRINGE IM SCH (20:55)
[2025-11-02] MEDS ORDERED: Ondansetron HCl 2 MG / ML 2ML Vial IV PRN (20:55)
[2025-11-02] MEDS ORDERED: Albuterol 2.5 MG/3 ML VIAL INH PRN (21:00)
[2025-11-02] MEDS ORDERED: Ipratropium/Albuterol SulF 2.5-0.5MG/3 ML Amp INH SCH (21:00)
[2025-11-02] MEDS ORDERED: CefTRIAXone Sodium 1,000 MG in NS 100 ML IV SCH (21:00)
[2025-11-02] MEDS ORDERED: Labetalol HCL 5 MG/ML 4ML Injection (Single Dose) IV PRN (21:00)
[2025-11-02] MEDS ORDERED: Formoterol/Mometasone MDI 5/200 mcg 13 GM INH SCH (21:10)
[2025-11-02 21:26] LABS: pH Blood Venous 7.38 (7.34-7.37)
[2025-11-02 22:17] LABS: Influenza A, PCR NEGATIVE (NEGATIVE); Influenza B, PCR NEGATIVE (NEGATIVE); Resp Syncytial Virus, PCR NEGATIVE (NEGATIVE); SARS-Cov-2 (COVID-19) PCR, MMC NEGATIVE (NEGATIVE)
[2025-11-02 22:45] VITALS: BP 141/99
[2025-11-03] MEDS ORDERED: ADVAIR HFA 230-28 GM INH (00:30)
[2025-11-03] MEDS ORDERED: EZET10 PO (00:34)
[2025-11-03] MEDS ORDERED: ANORO ELLIPTA1 EAC1 INH (00:37)
[2025-11-03] MEDS ORDERED: MELATONIN5 M1 PO (00:39)
[2025-11-03] MEDS ORDERED: ACETAMINOPHEN500 M2 PO (00:44)
[2025-11-03] MEDS ORDERED: NYAMYC15 G1 TOP (00:47)
[2025-11-03] MEDS ORDERED: OLAN5 PO (00:48)
[2025-11-03] MEDS ORDERED: MIRALAX1714 PO (00:51)
--- NOTE | 2025-11-03 01:05 | NUR ---
ADMIT NOTE REPORT RECIVED BY THIS RN FROM ER BASIA @ [facility] 2159 PT ARRIVED TO PCU 18 @ [facility] 2230, PT SELF TRANSFERED WITH MINIMUL ASSISTANCE AND VERBAL CUES. VSS, PT ON 3L OXY MASK, HEPARIN INFUSING PER ORDERS. PT CLEANED UP AND PUREWICK PLACED
[2025-11-03 02:50] LABS: BASOPHILS ABSOLUTE AUTO 0.05 K/mm3 (0.00-0.23); BASOPHILS PERCENT AUTO 1 % (0-2); EOSINOPHILS ABSOLUTE AUTO 0.33 K/mm3 (0.00-0.68); EOSINOPHILS PERCENT AUTO 4 % (0-6); Hematocrit 39.4 % (33.0-51.0); Hemoglobin 12.2 g/dL (11.5-16.0); IMMATURE GRAN ABSOLUTE AUTO 0.01 K/mm3 (0.00-0.10); IMMATURE GRAN PERCENT AUTO 0 % (0-1); LYMPHOCYTES ABSOLUTE AUTO 1.51 K/mm3 (0.84-5.20); LYMPHOCYTES PERCENT AUTO 20 % (21-46); MONOCYTES ABSOLUTE AUTO 0.78 K/mm3 (0.16-1.47); MONOCYTES PERCENT AUTO 10 % (4-13); Mean Corpuscular HGB Conc 31.0 g/dL (31.5-36.5); Mean Corpuscular Volume 96 fL (80-100); NEUTROPHILS ABSOLUTE AUTO 4.98 K/mm3 (1.96-9.15); NEUTROPHILS PERCENT AUTO 65 % (41-73); NRBC ABSOLUTE 0.00 K/mm3 (0.00-0.02); NRBC Auto 0.0 /100 WBC (0.0-0.2); Platelet Count 189 K/mm3 (150-400); RDW Coefficient Variation 13.8 % (11.7-14.2); RDW Standard Deviation 48.7 fL (35.1-46.3)
[2025-11-03 03:06] LABS: Alanine Aminotransfer (ALT/SGP 25.0 U/L (12-78); Albumin, Blood 3.2 g/dL (3.4-5.0); Albumin/Globulin Ratio 1.0 (0.8-1.8); Anion Gap 4.0 mmol/L (3-11); Aspartate Aminotrans (AST/SGOT 28.0 U/L (12-37); Bilirubin, Total 0.5 mg/dL (0.1-1.0); Blood Urea Nitrogen 11.0 mg/dL (8-24); CO2, Blood 41.0 mmol/L (21-32); Calcium, Blood 8.9 mg/dL (8.5-10.1); Chloride, Blood 97.0 mmol/L (98-108); Creatinine, Blood 0.92 mg/dL (0.40-1.00); Globulin, Blood 3.3 g/dL (2.2-4.0); Glucose, Blood 117.0 mg/dL (70-99); Potassium, Blood 3.4 mmol/L (3.5-5.5); Sodium, Blood 139.0 mmol/L (136-145); Total Protein, Blood 6.5 g/dL (6.4-8.2)
[2025-11-03] MEDS ORDERED: Dose Adjust by Pharmacy XX STA (03:29)
[2025-11-03 04:09] VITALS: BP 152/78
--- NOTE | 2025-11-03 05:57 | NUR ---
SHIFT SUMMARY PT A&O X 3, FORGETFUL, ABLE TO MAKE NEEDS KNOWN, CALLS APPROPRIATELY, SBA WITH MINIMAL ASSISTANCE/ BASELINE PT HAS WHEEL CHAIR. CONTINUOUS SPO2, SPO2 GREATER THAN 88% BASLINE 2.5L O2 VIA OXYMASK. TITRATED DOWN FROM 4L O2, PT REPORTS SOB THAT INCREASES WITH ACTIVITY, PT HAS MOIST OCCASIONAL COUGH. CONTINUOUS TELE MONITORING, SINUS 80-90 S, BP STABLE WITH MAP GREATER THAN 65, CAP REFILL WNL, PULSES PRESENT T/O, PT DENIES CHEST P/P T/O THIS SHIFT, GENERALIZED EDEMA AND BLE EDEMA, HEPARIN INFUSING PER ODERS. BOWEL TONES PRESENT IN ALL 4Q, DENIES FEELING OF CONSTIPATION, PT BEEN NPO SINCE 0000 11/02/[address] CONNECTED TO LOW CONTINUOUS SUCTION, URINE YELLOW. BED LOWEST POSITION, CALL LIGHT IN REACH, AWAITING TO GIVE REPORT TO ONCOMING RN.
[2025-11-03 07:05] VITALS: BP 147/77
--- NOTE | 2025-11-03 09:28 | NUR ---
am note this rn assumed care at 0700. vital signs stable. tele sinus rhythm 80s. spo2 >90% on 2.5l nc. patient is alert and oriented x3. patient is able to make needs known and uses call light. patient denies pain, chest pain/pressure or shortness of breath. patiet has reddness on left abd skin fold, red bottom that is blanchable and red spots on legs. photos are in the paper chart. see shift assessment for further details
[2025-11-03 11:03] VITALS: BP 109/67
--- NOTE | 2025-11-03 11:06 | NUR ---
md tamika moore in to see patient around 0955 and discussed plan of care with patient and awaiting for survey field technician to come around to determine if patient can eat or not. this rn spoke with dru at 0957 and gave an update to the nurse. md trimble in to see patient at 1100 and discussed plan to do echo and pending echo will determine next steps. plan of care is up to date
--- NOTE | 2025-11-03 12:47 | NUR ---
UPDATE md atilio christensen'd patient to eat and d/c heparin drip. patient more confused this afternoon, see neuro assessment. this rn called md moore and ordered for vbg and palliative care consult.
[2025-11-03 13:04] LABS: pH Blood Venous 7.41 (7.34-7.37)
[2025-11-03 15:26] VITALS: BP 106/58
[2025-11-03] MEDS ORDERED: Polyethylene Glycol 3350 17 gm PO PRN (16:50)
[2025-11-03] MEDS ORDERED: Miconazole Nitrate 2% 85 GM PWD TOP PRN (17:05)
--- NOTE | 2025-11-03 17:19 | NUR ---
shift summary see previous notes for detials. vital remain stable this shift. patient up in the chair at this time eating dinner. patient is a one person assist to get into the chair. patient neuro remains unchanged.
[2025-11-03 19:50] VITALS: BP 95/79
[2025-11-03 23:17] VITALS: BP 118/58
[2025-11-04 03:41] VITALS: BP 95/59
[2025-11-04 04:03] LABS: BASOPHILS ABSOLUTE AUTO 0.04 K/mm3 (0.00-0.23); BASOPHILS PERCENT AUTO 0 % (0-2); EOSINOPHILS ABSOLUTE AUTO 0.39 K/mm3 (0.00-0.68); EOSINOPHILS PERCENT AUTO 4 % (0-6); Hematocrit 37.3 % (33.0-51.0); Hemoglobin 11.5 g/dL (11.5-16.0); IMMATURE GRAN ABSOLUTE AUTO 0.02 K/mm3 (0.00-0.10); IMMATURE GRAN PERCENT AUTO 0 % (0-1); LYMPHOCYTES ABSOLUTE AUTO 0.70 K/mm3 (0.84-5.20); LYMPHOCYTES PERCENT AUTO 8 % (21-46); MONOCYTES ABSOLUTE AUTO 0.89 K/mm3 (0.16-1.47); MONOCYTES PERCENT AUTO 10 % (4-13); Mean Corpuscular HGB Conc 30.8 g/dL (31.5-36.5); Mean Corpuscular Volume 97 fL (80-100); NEUTROPHILS ABSOLUTE AUTO 7.31 K/mm3 (1.96-9.15); NEUTROPHILS PERCENT AUTO 78 % (41-73); NRBC ABSOLUTE 0.00 K/mm3 (0.00-0.02); NRBC Auto 0.0 /100 WBC (0.0-0.2); Platelet Count 164 K/mm3 (150-400); RDW Coefficient Variation 13.9 % (11.7-14.2); RDW Standard Deviation 50.0 fL (35.1-46.3)
[2025-11-04 04:30] LABS: Alanine Aminotransfer (ALT/SGP 22.0 U/L (12-78); Albumin, Blood 3.2 g/dL (3.4-5.0); Albumin/Globulin Ratio 1.0 (0.8-1.8); Anion Gap 3.0 mmol/L (3-11); Aspartate Aminotrans (AST/SGOT 26.0 U/L (12-37); Bilirubin, Total 0.7 mg/dL (0.1-1.0); Blood Urea Nitrogen 12.0 mg/dL (8-24); CO2, Blood 41.0 mmol/L (21-32); Calcium, Blood 8.9 mg/dL (8.5-10.1); Chloride, Blood 99.0 mmol/L (98-108); Creatinine, Blood 0.98 mg/dL (0.40-1.00); Globulin, Blood 3.1 g/dL (2.2-4.0); Glucose, Blood 101.0 mg/dL (70-99); Potassium, Blood 4.2 mmol/L (3.5-5.5); Sodium, Blood 139.0 mmol/L (136-145); Total Protein, Blood 6.3 g/dL (6.4-8.2)
--- NOTE | 2025-11-04 06:04 | NUR ---
SHIFT SUMMARY PT A&O X 3, FORGETFUL, ABLE TO MAKE NEEDS KNOWN, CALLS APPROPRIATELY, SBA WITH MINIMAL ASSISTANCE, BED ALARM ACTIVE. CONTINUOUS SPO2, SPO2 GREATER THAN 88% BASLINE 2.5L O2 VIA OXYMASK/ OCCASIONALLY DESATURATING TO 80 S WHEN PT TAKES OFF HER O2 BUT QUICKLY RECOVERS WHEN REPLACED, PT REPORTS SOB THAT INCREASES WITH ACTIVITY, PT HAS MOIST OCCASIONAL COUGH. CONTINUOUS TELE MONITORING, SINUS 80-90 S, BP STABLE WITH MAP GREATER THAN 65, CAP REFILL WNL, PULSES PRESENT T/O, PT DENIES CHEST P/P T/O THIS SHIFT, GENERALIZED EDEMA AND BLE EDEMA THAT APPEARS TO BE IMPROVED FROM PREVIOUS SHIFT. BOWEL TONES PRESENT IN ALL 4Q, DENIES FEELING OF CONSTIPATION. PUREWICK IN PLACE CONNECTED TO LOW CONTINUOUS SUCTION, URINE YELLOW. BED LOWEST POSITION, CALL LIGHT IN REACH, AWAITING TO GIVE REPORT TO ONCOMING RN.
[2025-11-04 07:38] VITALS: BP 114/66
[2025-11-04] MEDS ORDERED: Cholecalciferol 1000 Unit Tablet (=25MCG) PO SCH (09:00)
[2025-11-04] MEDS ORDERED: Potassium Chloride 10 Meq Tablet SA PO SCH (09:00)
--- NOTE | 2025-11-04 09:01 | NUR ---
CARE ASSUMPTION PT LETHARGIC. PLACED ON CPAP, 5L BLEED IN TO MAINTAIN SATS >90%. W/O 02, PT SP02 IN 70'S. T/O MORNING, BLEED IN NEEDING INCREASED TO MAINTAIN >90%. CURRENTLY ON 14L BLEED IN. RT IN ROOM TO SWITCH PT TO V60. MD RACHEL NOTIFIED. ORDERS FOR VBG AND CHEST XRAY.
[2025-11-04 09:57] LABS: pH Blood Venous 7.35 (7.34-7.37)
[2025-11-04 11:25] VITALS: BP 107/92
[2025-11-04 15:05] LABS: pH Blood Venous 7.39 (7.34-7.37)
[2025-11-04 15:55] VITALS: BP 115/70
--- NOTE | 2025-11-04 17:33 | NUR ---
SHIFT SUMMARY PT A&Ox2-3, BECOMING INCREASINGLY ALERT THORUGHOUT SHIFT AFTER WEARING BIPAP FOR MAJORITY OF SHIFT. BP STABLE, SINUS 80's, DENIES CP/PRESSURE. SpO2> 92% BIPAP TITRATED FROM 18/8 60% TO 14/6 60% FiO2 BY RT, 10L VIA NC WHEN OFF BIPAP. REPORTS SOB WHEN LAYING FLAT AND TALKING A LOT. RETAINING URINE, MD NOTIFIED, ORDERS GIVEN AND MARIANO CATH PLACED. [facility] UPDATED. PT UP TO CHAIR WITH LIFT AND Q2 TURNS PROVIDED. ORAL / DENTURE CARE PROVIDED. NO OTHER EVENTS, WILL REPORT TO ONCOMING RN.
[2025-11-04 20:12] VITALS: BP 97/62
[2025-11-04] MEDS ORDERED: NS 250 ML IV PRN (20:25)
[2025-11-05 00:14] VITALS: BP 85/59
[2025-11-05 03:49] VITALS: BP 91/53
[2025-11-05 03:54] VITALS: BP 105/67
[2025-11-05 04:09] LABS: BASOPHILS ABSOLUTE AUTO 0.03 K/mm3 (0.00-0.23); BASOPHILS PERCENT AUTO 0 % (0-2); EOSINOPHILS ABSOLUTE AUTO 0.42 K/mm3 (0.00-0.68); EOSINOPHILS PERCENT AUTO 6 % (0-6); Hematocrit 36.5 % (33.0-51.0); Hemoglobin 11.0 g/dL (11.5-16.0); IMMATURE GRAN ABSOLUTE AUTO 0.03 K/mm3 (0.00-0.10); IMMATURE GRAN PERCENT AUTO 0 % (0-1); LYMPHOCYTES ABSOLUTE AUTO 0.76 K/mm3 (0.84-5.20); LYMPHOCYTES PERCENT AUTO 11 % (21-46); MONOCYTES ABSOLUTE AUTO 0.76 K/mm3 (0.16-1.47); MONOCYTES PERCENT AUTO 11 % (4-13); Mean Corpuscular HGB Conc 30.1 g/dL (31.5-36.5); Mean Corpuscular Volume 98 fL (80-100); NEUTROPHILS ABSOLUTE AUTO 5.16 K/mm3 (1.96-9.15); NEUTROPHILS PERCENT AUTO 72 % (41-73); NRBC ABSOLUTE 0.00 K/mm3 (0.00-0.02); NRBC Auto 0.0 /100 WBC (0.0-0.2); Platelet Count 154 K/mm3 (150-400); RDW Coefficient Variation 14.0 % (11.7-14.2); RDW Standard Deviation 50.2 fL (35.1-46.3)
[2025-11-05 04:36] LABS: Alanine Aminotransfer (ALT/SGP 24.0 U/L (12-78); Albumin, Blood 2.9 g/dL (3.4-5.0); Albumin/Globulin Ratio 0.9 (0.8-1.8); Anion Gap 4.0 mmol/L (3-11); Aspartate Aminotrans (AST/SGOT 57.0 U/L (12-37); Bilirubin, Total 0.6 mg/dL (0.1-1.0); Blood Urea Nitrogen 16.0 mg/dL (8-24); CO2, Blood 39.0 mmol/L (21-32); Calcium, Blood 8.9 mg/dL (8.5-10.1); Chloride, Blood 98.0 mmol/L (98-108); Creatinine, Blood 0.91 mg/dL (0.40-1.00); Globulin, Blood 3.2 g/dL (2.2-4.0); Glucose, Blood 93.0 mg/dL (70-99); Potassium, Blood 4.0 mmol/L (3.5-5.5); Sodium, Blood 137.0 mmol/L (136-145); Total Protein, Blood 6.1 g/dL (6.4-8.2)
--- NOTE | 2025-11-05 07:54 | NUR ---
SHIFT SUMMARY: PT IS A&O TO SELF, AND PLACE, SHE IS CANTANKEROUS AND OFTEN REFUSES CARE. HYPOTENSIVE, SBP 90'S, MAP >65, AFEBRILE. PT IS ON 10 L OXYGEN HFNC, ATTEMPTED TO TITRATE DOWN TO 5L, DESATTED TO 86%. PT IS NOT ABLE TO TOLERATE HER BIPAP, UNTIL SHE HAS BECOME OBTUNDED, SHE IS 14/6, 45 % FiO2. WHILE WEARING HER BIPAP, SPO2 READS 93-94%. MONITOR SHOWS SR 60'S-70'S. PT C/O PAIN TO HER LLQ, MEDICATED WITH 1000MG PO TYLENOL WITH GOOD RELIEF. PT ALSO TELLS THIS RN SHE IS A DAILY TOBACCO SMOKER, SHE IS NOT INTERESTED IN CESSATION. THIS RN CALLED THE RESIDENT AND HE ORDERED A 14 MG NICOTINE PATCH, IT WAS PLACED TO PT'S LUE. PT HAS SOME YEAST TO UNDER THE LEFT SIDE OF HER ABD FOLD, CLEANSED AND MICONAZOLE POWDER APPLIED. PT IS NOOB THIS SHIFT, REPOSITIONED TOLERATED. PT TOLERATING A REGULAR DIET. MARIANO CATHETER DRAINING ADEQUATE AMOUNTS OF CLEAR, YELLOW URINE TO GRAVITY. NO BM THIS SHIFT. BED IN LOWEST POSITION, CALL LIGHT WITHIN REACH. IF THE PT CAN'T FIND HER CALL LIGHT, SHE JUST HOLLERS OUT FOR HELP, BED ALARM SET FOR PT'S SAFETY.
[2025-11-05 08:28] VITALS: BP 91/51
[2025-11-05 10:59] LABS: pH Blood Venous 7.41 (7.34-7.37)
--- NOTE | 2025-11-05 11:36 | NUR ---
MORNING EVENT THIS MORNING THE PT WAS ON THE BIPAP 14/6 @ 45% AND ABOUT 0900 THE PT WAS ARROUSABLE AND STATING SHE WAS HUNGRY. SHE WAS SWITCHED TO THE NASAL CANNULA 8L NC AND SP02 >97%. PT ARROUSABLE ORIENTED TO SELF AND LOCATION. THE PT WAS HAVING SOME SOB AND WAS GIVEN A BREATHING TREATMENT PER RT AND SHE WAS SAYING HER BREATHING WAS BETTER AFTER TREATMENT. SHE WAS TITRATIED DOWN TO 3LNC W/ SP02 >93%. BP HAS BEEN SOFT BUT LABILE. ABOUT 0955 THE PT STARTED TO DESATURATE AFTER EATING. SHE WAS TURNED UP TO 5LNC FROM 3L BUT SP02 REMAINED 80'S. AFTER A FEW MINUTES THE PT BEGAN TO DROP TO 70'S AND WAS SWITCHED TO AN OXYMASK FROM BREAK GIANFRANCO MCBRIDE D/T PT'S MOUTH BREATHING AND THE MASK WAS TURNED UP TO 10L. DESPITE BEING SWITCHED TO OXYMASK AND AND CHANING OXYGEN PROBE THE PT WAS STILL SATURATING IN THE 70'S SO BREAK GIANFRANCO MCBRIDE AND CERTIFIED ETHICAL HACKER DOE PLACED THE PT BACK ON HER BIPAP AND CALLED RT EMMETT. THIS RN WAS CALLED INTO THE ROOM AND THE PT WAS ON THE BIPAP 14/6 @ 100%. DR. CAIN WAS ON THE UNIT AND CALLED INTO THE ROOM. THE PT WAS ABLE TO BE TITRATIED BACK DOWN TO 1486 @ 45% AFTER ABOUT 5 MINUTES TO MAINTAIN SP02 >88%. STAT 1V XRAY TAKEN, STAT VBG DRAWN. DR. CAIN TOOK A COPY OF PT'S COURT APPOINTED JONAS AND SPOKE WITH THE TEAM AND UPDATED THEM. AGREEMENT TO TRANSITION PATIENT TO COMOFORT CARE HAS BEEN INITIATED. PALLIATIVE CARE NOTIFIED AND WORKING WITH DR. CAIN ON COMFORT MEDICATIONS. SEE NOTES FOR UPDATES
--- NOTE | 2025-11-05 12:01 | NUR ---
Pt is a 75-year-old female with a history of CHFpEF, COPD, and vascular dementia. She was admitted for NSTEMI but further determined to be type 2 NV related to physiologic stress. She is having increased lethargy and oxygen requirement. The decision was made by pt's guardian to begin comfort care. Pt is currently on bipap mask, SOB ongoing.
[2025-11-05] MEDS ORDERED: Atropine Sulfate 1% Opth Soln 2ML BTL SL PRN (12:20)
[2025-11-05] MEDS ORDERED: Morphine Sulfate 10 MG/ML 1MLSYR IV PRN (12:20)
[2025-11-05] MEDS ORDERED: LORazepam 2 MG/ML 1ML Injection IV PRN (12:20)
[2025-11-05] MEDS ORDERED: Morphine Sulfate 20 MG/1ML 1 ML Oral Syringe SL PRN (12:20)
--- NOTE | 2025-11-05 16:20 | NUR ---
PALLIATIVE CONSULT RECEIVED. PT IS A 75 YEAR OLD WOMAN WITH CHF, COPD, HTN. NO POLST ON FILE.
--- NOTE | 2025-11-05 18:41 | NUR ---
END OF NOTE UPDATES THE PT REMAINS ON COMFORT CARE. SHE HAS BEEN TAKEN OFF THE BIPAP PER REQUEST AND IS SOMULENT BUT ARROUSABLE. SHE WAS ABLE TO STAY AWAKE FOR DINNER AND EAT A MEAL. SHE IS CURRENTLY ON 4LNC. THE PT DENIES ANY ANGINA, PAIN, OR SHORTNESS OF BREATH. THIS RN AND PHARMACEUTICAL ENGINEER WILL TRIED CALL THE RN'S FOR [facility] MULTIPLE TIMES TODAY TO GIVE THEM UPDATES ON TRANSITION TO COMFORT CARE AND SET UP HOSPICE, BUT THERE HAS BEEN NO RETURN OF PHONE CALLS. THIS RN DID TALK TO [facility] AND UPDATED HER. SHE STATED SHE WOULD REACH OUT TO THE NURSES DIRECTOR CALL CENTER SALES AT [facility] AND SEE IF THEY COULD CALL THE HOSPITAL. NO REACH THUS FAR. THE PT CONTINUES TO HAVE A MARIANO DRAINING TO GRAVITY. TOLERATING ORAL CARE AND Q2 TURNS. CURRENTLY THE PT IS RESTING IN THE ROOM. BED ALARM INTACT. SEE NOTES FOR ANY UPDATES.
--- NOTE | 2025-11-06 07:23 | NUR ---
SHIFT SUMMARY: PT IS ALERT, BUT NOT ORIENTED. SHE COULDN'T STATE HER BIRTHDAY. SHE DOES SEEM RELAXED AND IN A MUCH HAPPIER MOOD THAN THE PREVIOUS NIGHT. SHE FOLLOWS COMMANDS. PT IS ON 5-7 L OXYGEN HFNC. PT C/O PAIN TO HER PUBIS AREA AND LLQ ABD FOLD THAT IS EXCORIATED, MEDICATED WITH 1000MG PO TYLENOL WITH GOOD RELIEF. PT HAS SOME YEAST TO UNDER THE LEFT SIDE OF HER ABD FOLD, CLEANSED AND MICONAZOLE POWDER APPLIED, ALSO APPLIED SOME POWDER UNDER HER BREASTS. PT IS NOOB THIS SHIFT, REPOSITIONED TOLERATED. PT TOLERATING A REGULAR DIET. PT IS NOW ON COMFORT CARE, SHE WAS MADE COMFORTABLE T/O THE NIGHT. MARIANO CATHETER DRAINING ADEQUATE AMOUNTS OF CLEAR, YELLOW URINE TO GRAVITY. NO BM THIS SHIFT, BRIEF IN PLACE. BED IN LOWEST POSITION, CALL LIGHT WITHIN REACH. PT DOES NOT ALWAYS USE HER CALL LIGHT APPROPRIATELY, SO HER BED ALARM IS SET FOR PT'S SAFETY. PT HAD HER NIECE, DOROTA CUMMINS, ALSO AN EMPLOYEE FROM [employer].
--- NOTE | 2025-11-06 15:00 | NUR ---
Sheri (pt) is awake and sitting in bed. Pt complains of constant "itching." Attending nurse Maritza was attentive to pt concerns and needs while I was present. Pt seems to lose some clarity of speech following being administered morphine and other medication. Pt has a recurring thought about "not understanding" and "trying to be helpful/do the right thing no matter what." Attempted to conduct a spiritual assessment. Pt has a history of spirituality and recently began attending a new sikhism but experienced an unclear issue. Provided non-judgmental listening, compassionate touch, and read scripture to pt. Prayed with pt and she thanked me before leaving.
--- NOTE | 2025-11-06 15:29 | NUR ---
MORNING/EARLY AFTERNOON SUMMARY THE PT HAS BEEN ARROUSABLE AND ORIENTED TO SELF, PLACE, AND SITUATION. SHE HAS BEEN EXPERINCING AIR HUNGER AND SOME ANXIETY THIS AFTERNOON. COMFORT CARE MEDICATIONS GIVEN PER EMAR. THIS RN SAT AND READ SOME SCRIPTURES FROM THE BIBLE TO THE PT PER REQUEST AND THE ALLI CAME AND VISITED WITH THE PT FOR ABOUT AN HOUR. HE IS STILL ON A FE LITERS OF OXYGEN FOR HER COMFORT. SHE IS TOLERATING ORAL CARE AND Q2 TURNS. BEDBATH COMPLETED THIS MORNING. THE PT HAS A MARIANO DRAINING TO GRAVITY. PT STILL HAS AN APPEITIE AND IS TOLERATING FOOD AND DRINKS. [facility] CALLED FOR AN UPDATE, HER NAME WAS MANUEL. SHE WAS UPDATED ON THE PT AND ASKED TO HAVE THE RN GET A HOLD OF THE HOSPITAL BECAUSE [facility] STAFF MEMBERS HAVE BEEN TRYING TO REACH THEM FOR POTENTIAL DISCHARGE WITH HOSPICE. MANUEL STATED SHE WAS GOING TO REACH OUT TO THE DIE OUT WORKER TO GET [facility] OF PCU. STILL AT THIS TIME THERE HAS BEEN NO FURTHER CALLS. THE PT WILL BE TRANSFERING TO [place] [id number] THIS AFTERNOON. CURRENTLY THE PT IS RESTING IN THE ROOM. BED ALARM INTACT. SEE NOTES FOR UPDATES.
--- NOTE | 2025-11-06 16:50 | NUR ---
TRANSFER NOTE: REPORT FROM LIANA MEDEL. PT ARRIVED TO ROOM 311 FROM PCU VIA BED. CURRENTLY ON 3.5L O2 VIA HFNC. PT ORIENTED TO ROOM AND SURROUNDINGS, BUT BED ALARM SET FOR SAFETY. MARIANO CATHETER IN PLACE, DRAINING TO GRAVITY. BED LOCKED AND IN THE LOWEST POSITION. CALL LT WITHIN REACH.
--- NOTE | 2025-11-06 17:59 | NUR ---
SHIFT SUMMARY: SINCE TIME OF TRANSFER, PT REMAINS AGITATED AND ANXIOUS. PT IS CALLING 0UT. MEDICATED PER EMAR. PT ON 3.5L O2 VIA HFNC, BUT OFTEN PULLS IT OFF. PT IS ALERT, BUT ONLY ORIENTED TO SELF. BED ALARM SET FOR SAFETY. CALL LT WITHIN REACH.
--- NOTE | 2025-11-07 05:51 | NUR ---
SHIFT SUMMARY COMFORT CARE CONTINUES. PT ORIENTED TO SELF. MEDICATED FOR AIR HUNGER AND GENERALIZED DISCOMFORT WITH ROXINOL PER EMAR. PT ABLE TO REST WITH EYES CLOSED,SLEEPING LONG INTERVALS DURING THE NIGHT. PT IMPULSIVE AND YELLING OUT AT START OF SHIFT ONLY, NOW MUCH CALMER. PT TURNED AND REPOSITIONED. MEPELEX INTACT TO COCCYX, MICONIZOLE POWDER APPLIED TO PANNUS AND UNDER BREASTS. PT TOOK HS MEDICATIONS CRUSHED IN PUDDING. DRINKING WATER AND SODA DURING THE NIGHT. MARIANO DRAINING DARK YELLOW URINE. STAFF MEMBER FROM [facility] IN TO VISIT DURING THE EVENING.
--- NOTE | 2025-11-07 16:51 | NUR ---
SHIFT SUMMARY: A&O TO SELF. COOPERATIVE WITH CARE. PT MEDICATED FOR AIR HUNGER MULTIPLE TIMES THIS SHIFT, WITH GOOD VISUAL EFFECT. PT BREATHING IS NONLABORED. REPOSITIONED Q2-3HR FOR COMFORT. LYING IN BED WITHOUT AGITATION AT THIS TIME. BED LOCKED AND IN THE LOWEST POSITION. CALL LT WITHIN REACH.
--- NOTE | 2025-11-08 06:30 | NUR ---
SHIFT SUMMARY COMFORT CARE CONTINUES. PT MEDICATED X1 WITH ROXINOL AND X1 WITH ATIVAN PER EMAR. PT OCCASIONALLY CALLS OUT, BUT IS MOSTLY RESTING WITH EYES CLOSED. PT DRINKING WATER AND PEPSI INDEPENDENTLY AND ATE 2 PUDDINGS WITH ASSSISTANCE. PT TURNED AND REPOSITIONED THROUGHOUT THE NIGHT. MEPELEX REMAINS INTACT TO COCCYX. MARIANO DRAINING MELONIE COLORED URINE.
--- NOTE | 2025-11-08 09:49 | NUR ---
PHYSICAN CONTACT PT C/O ITCHING, DR. BROWN CONTACTED. HYDROXYZINE ORDERED PER THE EMAR.
[2025-11-08] MEDS ORDERED: HYDHCL25 PO (12:29)
[2025-11-08] MEDS ORDERED: LORA1 PO (12:30)
[2025-11-08] MEDS ORDERED: MORP20L SL (12:31)
--- NOTE | 2025-11-08 12:40 | NUR ---
ROUNDED ON PT THIS MORNING. PT AWAKENS EASILY TO VERBAL STIMULI AND ANSWERS QUESTIONS BUT FALLS RIGHT BACK ASLEEP EVIDENCED BY HER SNORING. PULSES THREADY, WEAK. PT LETHARGIC. RR ARE EVEN AND SLIGHTLY LABORED. PT APPEARS TO BE COMFORTABLE. PAINAD 0/10. SPOKE TO PRIMARY RN AND CM. PT SHOULD DISCHARGE WITH SAME DAY ADMISSION TO HOSPICE DUE TO LABORED BREATHING AND THREADY PULSES.
--- NOTE | 2025-11-08 13:24 | NUR ---
DISCHARGE NOTE PT DISCHARGED BACK TO [facility], PICKED UP BY [facility]. PERSONAL BELONGINGS PROVIDED TO TRANSPORTERS ALONG WITH PACKET. POLST IN THE PACKET. HARD SCRIPTS ALSO IN THE PACKET. IV REMOVED.
== END 2025-11-08 13:20 | disposition hospice, home (50) | DRG 193 ==
LOC: ER 16:00 → ERHOLD 20:51 → PCU 20:51 → MEDS 11-06 16:45 → ENPENDDIS 11-08 11:55 → MEDS 11-08 13:20
PROVIDERS: Family Medicine; Internal Medicine; Nurse Practitioner Acute Care; Student in an Organized Health Care Education/Training Program; ADMIT Internal Medicine
PROC: 3E03329 Introduction of Other Anti-infective into Peripheral Vein, Percutaneous Approach (ICD-10-PCS; 2025-11-02)
PROC: 3E02340 Introduction of Influenza Vaccine into Muscle, Percutaneous Approach (ICD-10-PCS; 2025-11-02)
PROC: 5A09357 Assistance with Respiratory Ventilation, Less than 24 Consecutive Hours, Continuous Positive Airway Pressure (ICD-10-PCS; principal; 2025-11-05)
DX: J18.9 Pneumonia, unspecified organism (principal); I21.A1 Myocardial infarction type 2; J96.21 Acute and chronic respiratory failure with hypoxia; I50.32 Chronic diastolic (congestive) heart failure; J44.0 Chronic obstructive pulmonary disease with (acute) lower respiratory infection; I11.0 Hypertensive heart disease with heart failure; E78.5 Hyperlipidemia, unspecified; I35.0 Nonrheumatic aortic (valve) stenosis; Z51.5 Encounter for palliative care; F17.210 Nicotine dependence, cigarettes, uncomplicated; Z66 Do not resuscitate; E03.9 Hypothyroidism, unspecified; F25.9 Schizoaffective disorder, unspecified; E66.01 Morbid (severe) obesity due to excess calories; F01.50 Vascular dementia, unspecified severity, without behavioral disturbance, psychotic disturbance, mood disturbance, and anxiety; Z91.048 Other nonmedicinal substance allergy status; Z88.0 Allergy status to penicillin; Z88.8 Allergy status to other drugs, medicaments and biological substances; Z23 Encounter for immunization; Z91.040 Latex allergy status; Z88.2 Allergy status to sulfonamides; Z88.5 Allergy status to narcotic agent; Z79.890 Hormone replacement therapy; Z79.51 Long term (current) use of inhaled steroids; Z79.52 Long term (current) use of systemic steroids; Z79.899 Other long term (current) drug therapy; Z79.2 Long term (current) use of antibiotics; Z86.73 Personal history of transient ischemic attack (TIA), and cerebral infarction without residual deficits; Z87.19 Personal history of other diseases of the digestive system; Z85.42 Personal history of malignant neoplasm of other parts of uterus; Z99.81 Dependence on supplemental oxygen
CPT/HCPCS: 36415; 51702; 70450; 71045; 71046; 80053; 82803; 83690; 83880; 84443; 84484; 85025; 85520; 85610; 85730; 87637; 93005; 93010; 93306; 94640; 94660; 94664; 94762; 96374; 99285-25; A6590; A9270; J0456; J0696; J1644; J1938; J7050